=== PATIENT | male | born 1945 | race Caucasian/White ===

== ENCOUNTER → 2017-09-04 | Day surgery (SDC) | payer OTHER ==
[2017-08-28 11:13] VITALS: Ht 172.7 cm; Wt 127.3 kg
[~2017-09-04] VITALS: Ht 172.7 cm; Wt 127.3 kg
[~2017-09-04] MED LIST: ASPI-435 PO; DOCU100C31 PO; LIDOCAINE HCL 2% 2 ML VIAL (20MG/ML) ONE; MULTCHW; PROPOFOL IV EMULSION 10 MG/ML 20 ML VIAL ONE; VALS320T2 PO
--- NOTE | 2017-09-04 12:56 | Endo History and Physical ---
History & Physical Date of Service: September 04, 2017. Chief Complaint: history of polyps Referring Physician: Dr. Neal Smith History of Present Illness For colonoscopy Past Medical History Arthritis, Hypertension Past Surgical History Hx Cardiac Surgery: No Hx Internal Defibrillator: No Hx Pacemaker: No Hx Abdominal Surgery: Yes (OPEN APPY) Hx of Implantable Prosthesis: No Hx Post-Op Nausea and Vomiting: No Hx Cancer Surgery: No Hx Thoracic Surgery: No Hx Orthopedic: Yes (RT SHOULDER ARTHROSCOPY, LEFT CTR) Hx Urinary Tract Surgery: No Social History Smoking Status: Former Smoker Hx Substance Use: No Hx Alcohol Use: Yes (ONE BEER A YEAR) Allergies Coded Allergies: Codeine (Verified Adverse Reaction, Unknown, jittery, 08/28/17) Morphine (Verified Adverse Reaction, Unknown, jittery, 08/28/17) Current Medications Reported Home Medications Medications Dose Route/Sig Max Daily Dose Days Date Category Dose Instructions Docusate Sodium 100 Mg Cap 2 Cap PO BID 7 08/28/17 Reported Centrum Silver (Multiple Vitamins W/ Minerals) 1 Chw Chw 1 DAILY 08/24/15 Reported Aspirin 81 (Aspirin) 81 Mg Tab 1 Tab PO QAM 04/24/15 Reported Diovan Hct 320MG/25MG (HCTZ/Valsartan) 1 Tab Tab 1 Tab PO QAM 04/24/15 Reported 320-25MG Vital Signs Weight (Kilograms): 127.27 Height (Feet): 5 Height (Inches): 8 Date Time Temp Pulse Resp B/P (MAP) Pulse Ox O2 Delivery O2 Flow Rate FiO2 09/04/17 12:38 36.8 76 18 127/70 (89) 94 Room Air Physical Exam General Appearance: + obese Respiratory/Chest: Respiratory effort: no dyspnea Cardiovascular: Heart Auscultation: RRR Abdomen: Inspection & Palpation: soft Assessment and Plan Hx of polyps for colonoscopy
--- NOTE | 2017-09-04 13:39 | Discharge Instructions ---
Endoscopy Patient Instructions Date / Procedure(s) Performed September 04, 2017. Colonoscopy Allergy Information Coded Allergies: Codeine (Verified Adverse Reaction, Unknown, jittery, 08/28/17) Morphine (Verified Adverse Reaction, Unknown, jittery, 08/28/17) Discharge Date / Findings September 04, 2017. Diverticulosis, hemorrhoids, polyp Medication Instructions Stopped Medication(s): last dose ASA 3 days ago Restart Stopped Medication(s): resume meds Reported Home Medications Medications Dose Route/Sig Max Daily Dose Days Date Category Dose Instructions Docusate Sodium 100 Mg Cap 2 Cap PO BID 7 08/28/17 Reported Centrum Silver (Multiple Vitamins W/ Minerals) 1 Chw Chw 1 DAILY 08/24/15 Reported Aspirin 81 (Aspirin) 81 Mg Tab 1 Tab PO QAM 04/24/15 Reported Diovan Hct 320MG/25MG (HCTZ/Valsartan) 1 Tab Tab 1 Tab PO QAM 04/24/15 Reported 320-25MG Provider Instructions Activity Restrictions - No exercising or heavy lifting for 24 hours. - Do not drink alcohol the day of the procedure. - Do not drive a car or operate machinery until the day after the procedure. - Do not make any important decisions or sign important papers in 24 hours after the procedure. Following Day: - Return to full activity which may include returning to work/school. Diet Start your diet with liquids and light foods (jello, soup, juice, toast). Then eat your usual diet if not nauseated. Treatment For Common After Affects For mild abdominal pain, bloating, or excessive gas: - Rest - Eat lightly - Lie on right side Follow-Up Information Follow-up with Dr. Neal Smith as scheduled Anesthesia Information What You Should Know You have had a procedure that required some medicine to reduce anxiety and discomfort. This treatment is called moderate sedation. After receiving the treatment, you may be sleepy, but you will be able to breathe on your own. The effects of the treatment may last for several hours. Follow these instructions along with Activity/Diet recommendations noted above: * Do NOT do anything where dizziness or clumsiness would be dangerous. * Rest quietly at home today, then you can be up and about tomorrow. * Have a responsible person stay with you the rest of today. * You may have had an I.V. today. If so, you may take the dressing off later today. Recommendations Call your doctor if: * Trouble breathing * Continuous vomiting for more than 24 hours * Temperature above 101 degrees * Severe abdominal pain or bloating * Pain not relieved by pain medicine ordered * There is increased drainage or redness from any incision * A large amount of rectal bleeding greater than 2-3 tablespoons. (If you had a polyp/s removed or have hemorrhoids, a small amount of blood - from the rectum is to be expected.) * You have any unanswered questions or concerns. IN THE EVENT OF A SERIOUS EMERGENCY, GO TO THE NEAREST EMERGENCY ROOM Your discharge instructions were prepared by provider Cisco Lindo. Patient Instructions Signature Page Jaspal Craig Patient (or Guardian) Signature/Date: I have read and understand the instructions given to me by my caregivers. Caregiver/RN/Doctor Signature/Date: The above-named patient and/or guardian has received patient instructions on this date. + Original Patient Signature Page (only) stays with chart. Please make copy for patient.
--- NOTE | 2017-09-04 13:43 | GI REPORT ---
Patient Name: Jaspal Craig Procedure Date: 09/04/2017 12:42 PM Date of : 1945 Admit Type: Outpatient Age: 71 Gender: Male Attending MD: Cisco Lindo MD Procedure: Colonoscopy Providers: Cisco Lindo MD Referring MD: Neal Smith Indications: Personal history of colonic polyps Medicines: Propofol total dose 650 mg IV, Lidocaine 40 mg IV Complications: No immediate complications. Estimated Blood Loss: Estimated blood loss was minimal. Procedure: Pre-Anesthesia Assessment: - Prior to the procedure, a History and Physical was performed, and patient medications, allergies and sensitivities were reviewed. The patient's tolerance of previous anesthesia was reviewed. - The risks and benefits of the procedure and the sedation options and risks were discussed with the patient. All questions were answered and informed consent was obtained. After I obtained informed consent, the scope was passed under direct vision. Throughout the procedure, the patient's blood pressure, pulse, and oxygen saturations were monitored continuously. The scope was introduced through the anus and advanced to the cecum, identified by appendiceal orifice and ileocecal valve. The colonoscopy was somewhat difficult due to significant looping. Successful completion of the procedure was aided by applying abdominal pressure. The patient tolerated the procedure well. The quality of the bowel preparation was good. Findings: Multiple diverticula were found in the sigmoid colon. Non-bleeding internal hemorrhoids were found during endoscopy. The hemorrhoids were moderate. A 4 mm polyp was found in the sigmoid colon. The polyp was sessile. The polyp was removed with a cold snare. Resection and retrieval were complete. Estimated blood loss was minimal. Impression: - Diverticulosis in the sigmoid colon. - Non-bleeding internal hemorrhoids. - One 4 mm polyp in the sigmoid colon, removed with a cold snare. Resected and retrieved. Recommendation: - Discharge patient to home (ambulatory). - Continue present medications. - Await pathology results. - Return to primary care physician PRN. Cisco Lindo M.D. Cisco Lindo MD 09/04/2017 1:42:46 PM This report has been signed electronically. Note Initiated On: 09/04/2017 12:42 PM Number of Addenda: 0 I attest to the content of the Intraoperative Record and orders documented therein, exceptions below {[id number]}
--- NOTE | 2017-09-04 13:58 | Anesthesiology Progress Note ---
Anesthesia Post Op Note Date & Time September 04, 2017 at 13:57 Vital Signs Pain Intensity: 0 Vital Signs Past 12 Hours Date Time Temp Pulse Resp B/P (MAP) Pulse Ox O2 Delivery O2 Flow Rate FiO2 09/04/17 12:38 36.8 76 18 127/70 (89) 94 Room Air Notes Mental Status: alert / awake / arousable, participated in evaluation Pt Amnestic to Procedure: Yes Nausea / Vomiting: adequately controlled Pain: adequately controlled Airway Patency, RR, SpO2: stable & adequate BP & HR: stable & adequate Hydration State: stable & adequate Anesthetic Complications: no major complications apparent The patient is awake and his vitals are stable in recovery.
[2017-09-04 14:17] VITALS: BP 125/64; PULSE 68; O2SAT 96
== END | disposition home or self-care (01) ==
LOC: C.GI 12:15
PROVIDERS: ATTEND Internal Medicine Gastroenterology
DX: Z86.010 Personal history of colon polyps (principal); K57.30 Diverticulosis of large intestine without perforation or abscess without bleeding; K64.8 Other hemorrhoids; K63.5 Polyp of colon; E66.9 Obesity, unspecified; I10 Essential (primary) hypertension; M19.90 Unspecified osteoarthritis, unspecified site; Z87.891 Personal history of nicotine dependence; Z88.5 Allergy status to narcotic agent; Z79.82 Long term (current) use of aspirin

== ENCOUNTER 2021-06-06 16:55 | Inpatient (IN) ==
[2021-06-06 17:26] LABS: Basophils # (auto) 0.04 K/uL (0-0.2); Basophils % (auto) 0.5 %; Eosinophils # (auto) 0.19 K/uL (0-0.5); Eosinophils % (auto) 2.5 %; Hematocrit (blood only) 36.6 % (42-52); Hemoglobin 12.9 g/dL (14.0-18.0); Immature Granulocytes # (auto) 0.02 K/uL (0.00-0.02); Immature Granulocytes % (auto) 0.3 %; Lymphocytes # (auto) 1.06 K/uL (1.2-3.4); Lymphocytes % (auto) 13.9 %; Mean Corpuscular Hemoglobin 30.4 pg (25-34); Mean Corpuscular Hgb Conc 35.2 g/dL (32-36); Mean Corpuscular Volume 86.3 fL (80-100); Mean Platelet Volume 9.7 fL (7.4-10.4); Monocytes # (auto) 0.67 K/uL (0.11-0.59); Monocytes % (auto) 8.8 %; Neutrophils # (auto) 5.63 K/uL (1.4-6.5); Platelet Count 303 K/uL (130-400); RDW Coefficient of Variation 13.1 % (11.5-14.5); RDW Standard Deviation 41.4 fL (36.4-46.3); Red Blood Count 4.24 M/uL (4.7-6.1); White Blood Count 7.61 K/uL (4.8-10.8)
--- NOTE | 2021-06-06 17:57 | Emergency Department Note ---
History of Present Illness General Chief complaint: Abnormal Labs/Diagnostic Testing Stated complaint: REF BY DOC, KIDNEY SHUT DOWN Time Seen by Provider: 06/06/21 17:41 History of Present Illness 75-year-old male presents to the ED with a chief complaint of abnormal kidney function test. The patient states that he was seen by his PCP over a week ago and started on Lasix because of pedal edema. Over the past week he has had about 13 pounds of weight loss and has had some improvement with his pedal edema but reports that blood work yesterday from his PCPs office suggest that he has acute kidney injury with his creatinine going from 5.3-8.6. The patient states that he is urinating. He has no other complaints. Home Medications Medication Instructions Recorded Confirmed Type cyclosporine 0.05 % eye drops in a 1 drops OP Q12H 05/18/19 06/06/21 History dropperette (Restasis) valsartan 320 1 tab PO QAM 05/18/19 06/06/21 History mg-hydrochlorothiazide 25 mg tablet ascorbic acid (vitamin C) 500 mg 500 mg PO QAM 04/04/20 06/06/21 History chewable tablet (Vitamin C) furosemide 20 mg tablet (Lasix) 20 mg PO DAILY 06/01/21 06/06/21 History multivitamin 1 tab PO DAILY 06/01/21 06/06/21 History vitamin B complex 1 tab PO DAILY 06/06/21 06/06/21 History zinc 50 mg tablet 50 mg PO DAILY 06/06/21 06/06/21 History Allergies Allergy/AdvReac Type Severity Reaction Status Date / Time codeine AdvReac Intermediate jittery Verified 06/06/21 18:04 morphine AdvReac Intermediate jittery Verified 06/06/21 18:04 Past Med/Surg History Medical History Hearing deficit History of pneumonia roughly 5yrs ago--reason for inhaler prn Hypertension Morbid obesity with BMI of 40.0-44.9, adult Right knee DJD Right knee pain Surgical History History of appendectomy History of carpal tunnel release of both wrists History of colonoscopy with polypectomy History of left cataract surgery History of shoulder surgery right History of wisdom tooth extraction Family History Father Family history of diabetes mellitus Other Diabetes Heart disease Hypertension Kidney disease No family history of adverse response to anesthesia Social History Smoking Status: Current every day smoker Second Hand Exposure: No; Hx Alcohol Use: Yes Alcohol type: beer Hx Substance Use: No Preferred Language: Azeri Communication Ability: Effective Trauma Doctor Required: No Beliefs That Will Affect Care: None marital status: Current Living Situation: Spouse current occupational status: retired Feels Safe at Home: Yes Assistive Devices: Glasses and Hearing Aid - Bilateral Review of Systems A total of 10 systems reviewed and were otherwise negative Physical Exam Vital Signs Vital Signs - 24 hr 06/06/21 17:02 06/06/21 18:32 Temperature 36.9 C Temperature Source Temporal Artery Scan Pulse Rate 77 Respiratory Rate 18 14 Respiratory Effort / Characteristics Non-Labored Respiratory Depth Normal Blood Pressure 248/118 H Blood Pressure [Right Arm] 212/100 H Blood Pressure Mean 161 Blood Pressure Mean [Right Arm] 137 Pulse Oximetry 95 97 Oxygen Delivery Method Room Air Room Air Sepsis Recent Fever Within 48 Hours No Sepsis New/Unexplained Change in Mental Status N/A Sepsis Action Taken by Nursing No Action Required CONSTITUTIONAL/VITAL SIGNS: Reviewed / noted above. GENERAL: Non-toxic in appearance. INTEGUMENTARY: Warm, dry, and [place]. HEAD: Normocephalic. EYES: without scleral icterus or trauma. ENT/OROPHARYNX: clear and moist. LYMPHADENOPATHY/NECK: Is supple without lymphadenopathy or meningismus. RESPIRATORY: Clear to auscultation bilaterally. No increased work of breathing. CARDIOVASCULAR: Regular rate and rhythm. GI/ABDOMEN: Soft and nontender. No organomegaly or pulsatile mass. EXTREMITIES: Warm and well perfused. Pitting pedal edema. BACK: No CVA tenderness. NEUROLOGICAL: Intact without focal deficits. PSYCHIATRIC: normal affect. MUSCULOSKELETAL: Normally developed with good muscle tone. TRIAGE NURSING DOCUMENTATION REVIEWED. Course Administered Medications Discontinued Medications Sodium Chloride (Nss) 500 mls @ 999 mls/hr IV .Q31M ONE Stop: 06/06/21 18:36 Last Infusion: 06/06/21 19:01 Dose: 0 mls/hr Documented by: [id number] Admin: 06/06/21 18:28 Dose: 999 mls/hr Documented by: [id number] Medical Decision Making Differential Diagnosis Differential includes acute coronary syndrome, myocardial infarction, CVA, TIA, anemia, infection, pneumonia, UTI, pyelonephritis, poor nutrition, dehydration, electrolyte disturbance,hypoglycemia. Medical Records Attestation: I reviewed the patient's medical records. Home Medications Current Medication List: was personally reviewed by me Laboratory Data Attestation: I reviewed the patient's lab results. Result diagrams: 06/06/21 17:15 06/06/21 17:15 Lab Results 06/06/21 06/06/21 06/06/21 Range/Units 17:15 17:15 17: WBC 7.61 (4.8-10.8) K/uL RBC 4.24 L (4.7-6.1) M/uL Hgb 12.9 L (14.0-18.0) g/dL Hct 36.6 L (42-52) % MCV 86.3 (80-100) fL MCH 30.4 (25-34) pg MCHC 35.2 (32-36) g/dL RDW Std Deviation 41.4 (36.4-46.3) fL RDW Coeff of Sophie 13.1 (11.5-14.5) % Plt Count 303 (130-400) K/uL MPV 9.7 (7.4-10.4) fL Immature Gran % (Auto) 0.3 % Neut % (Auto) 74.0 % Lymph % (Auto) 13.9 % [place] % (Auto) 8.8 % Eos % (Auto) 2.5 % Baso % (Auto) 0.5 % Neut # (Auto) 5.63 (1.4-6.5) K/uL Lymph # (Auto) 1.06 L (1.2-3.4) K/uL [place] # (Auto) 0.67 H (0.11-0.59) K/uL Eos # (Auto) 0.19 (0-0.5) K/uL Baso # (Auto) 0.04 (0-0.2) K/uL Immature Gran # (Auto) 0.02 (0.00-0.02) K/uL Sodium 138 (136-145) mmol/L Potassium 3.2 L (3.5-5.1) mmol/L Chloride 104 (98-107) mmol/L Carbon Dioxide 23 (21-32) mmol/L Anion Gap 11 (3-11) BUN 71 H (6-23) mg/dl Creatinine 8.47 H* (0.6-1.4) mg/dl Est Cr Clr Drug Dosing 10.2 ml/min Est GFR ( Amer) 6.5 ml/min Est GFR (Non-Af Amer) 5.6 ml/min BUN/Creatinine Ratio 8.4 L (10-20) Glucose 96 (70-99(Fasting)) mg/dl Calcium 7.7 L (8.5-10.1) mg/dl Total Bilirubin 0.4 (0.2-1.0) mg/dl AST 11 L (13-39) U/L ALT 11 (7-52) U/L Alkaline Phosphatase 61 (34-104) U/L Troponin I 0.03 (0-0.04) ng/ml Total Protein 5.4 L (6.0-8.3) gm/dl Albumin 2.6 L (3.4-5.0) gm/dl Globulin 2.8 (2.5-4.0) gm/dl Albumin/Globulin Ratio 0.9 (0.9-2) SARS-CoV-2, RNA, NAAT (NEGATIVE) 06/06/21 Range/Units 18:20 WBC (4.8-10.8) K/uL RBC (4.7-6.1) M/uL Hgb (14.0-18.0) g/dL Hct (42-52) % MCV (80-100) fL MCH (25-34) pg MCHC (32-36) g/dL RDW Std Deviation (36.4-46.3) fL RDW Coeff of Sophie (11.5-14.5) % Plt Count (130-400) K/uL MPV (7.4-10.4) fL Immature Gran % (Auto) % Neut % (Auto) % Lymph % (Auto) % [place] % (Auto) % Eos % (Auto) % Baso % (Auto) % Neut # (Auto) (1.4-6.5) K/uL Lymph # (Auto) (1.2-3.4) K/uL [place] # (Auto) (0.11-0.59) K/uL Eos # (Auto) (0-0.5) K/uL Baso # (Auto) (0-0.2) K/uL Immature Gran # (Auto) (0.00-0.02) K/uL Sodium (136-145) mmol/L Potassium (3.5-5.1) mmol/L Chloride (98-107) mmol/L Carbon Dioxide (21-32) mmol/L Anion Gap (3-11) BUN (6-23) mg/dl Creatinine (0.6-1.4) mg/dl Est Cr Clr Drug Dosing ml/min Est GFR ( Amer) ml/min Est GFR (Non-Af Amer) ml/min BUN/Creatinine Ratio (10-20) Glucose (70-99(Fasting)) mg/dl Calcium (8.5-10.1) mg/dl Total Bilirubin (0.2-1.0) mg/dl AST (13-39) U/L ALT (7-52) U/L Alkaline Phosphatase (34-104) U/L Troponin I (0-0.04) ng/ml Total Protein (6.0-8.3) gm/dl Albumin (3.4-5.0) gm/dl Globulin (2.5-4.0) gm/dl Albumin/Globulin Ratio (0.9-2) SARS-CoV-2, RNA, NAAT NEGATIVE (NEGATIVE) Imaging Data My Impression: Chest x-ray: Per my interpretation there is no acute disease. No pneumothorax or pneumonia. ECG Data Attestation: I personally reviewed and interpreted this ECG as follows: Additional Comments: Twelve-lead EKG: Per my interpretation shows a normal sinus rhythm at a rate of 76. No ST elevation. Normal QTC. No PVCs. MDM Narrative Symptoms were mild presents with acute kidney injury in setting of recent diuresis and 13 pound weight loss. Blood pressure is elevated. Exam reveals pedal edema. Twelve-lead EKG shows a normal sinus rhythm. CBC is unremarkable. Chest x-ray not show acute disease. Chemistry panel shows a BUN of seventy-one and creatinine of 8.43. Albumin is 2.6. The patient will be seen by the [facility] pitalist for further inpatient evaluation and care. He was given 500 cc normal saline as I suspect some of his acute kidney dysfunction is related to dehydration. Impression & Plan Acute kidney injury superimposed on chronic kidney disease Discharge Plan Visit Data Chief Complaint: Abnormal Labs/Diagnostic Testing Stated Complaint: REF BY DOC, KIDNEY SHUT DOWN ED Provider: Camilo Swift Discharge Problem: Acute kidney injury superimposed on chronic kidney disease Patient Disposition: Admitted As Inpatient Forms Stand Alone Forms: [facility] Prescriptions Prescriptions: No Action valsartan-hydrochlorothiazide 320-25 mg tablet 1 tab PO QAM RF: 0 Restasis 0.05 % dropperette 1 drops OP Q12H RF: 0 furosemide [Lasix] 20 mg tablet 20 mg PO DAILY RF: 0 multivitamin Tablet 1 tab PO DAILY RF: 0 ascorbic acid (vitamin C) [Vitamin C] 500 mg Tablet,Chewable 500 mg PO QAM RF: 0 vitamin B complex Tablet 1 tab PO DAILY RF: 0 zinc 50 mg Tablet 50 mg PO DAILY RF: 0 Referrals Referrals: Neal Smith MD [Primary Care Provider] -
[2021-06-06 18:02] LABS: Albumin Globulin Ratio 0.9 (0.9-2); Albumin Level 2.6 gm/dl (3.4-5.0); BUN Creatinine Ratio 8.4 (10-20); Bilirubin,Total 0.4 mg/dl (0.2-1.0); Calcium 7.7 mg/dl (8.5-10.1); Creatinine Clr Calc Pharmacy 10.2 ml/min; Est GFR (African American) 6.5 ml/min; Est GFR (Non-African American) 5.6 ml/min; Globulin 2.8 gm/dl (2.5-4.0); Potassium 3.2 mmol/L (3.5-5.1); Total Protein 5.4 gm/dl (6.0-8.3)
[2021-06-06] MEDS ORDERED: SODIUM CHLORIDE 0.9% 500 ML IV ONE (18:06)
--- NOTE | 2021-06-06 18:42 | History & Physical Report ---
Date of Service June 06, 2021 Assessment & Plan (1) Acute renal failure: Plan: 75 yo M PMHx HTN admitted for acute renal failure. Acute renal failure: Presents from outpatient office with creatinine 8.47. One week prior creatinine of 5.3. Baseline creatinine 1.3 in 2019 (last known value prior per [facility] EMR). Recently started on Lasix 20mg PO daily due to suspicion of cardiorenal syndrome causing LARISA to 5.3. At this time most suspicious of ATN secondary to combined nephrotoxic medications (valsartan, HCTZ, Aleve, Lasix). Urine and serum lytes ordered. Renal ultrasound ordered. Holding Lasix, ARB, HCTZ. NSS at 125cc/hr x1 bag ordered. Strict intake and output. Repeat BMP in AM. K 3.2. EKG without peaked T waves. No indication for emergent dialysis. Telemetry for cardiac monitoring. Nephrology consulted and appreciate recommendations. HTN: History of, on valsartan/HCTZ. Holding in the setting of ARF. Metoprolol 10mg IV q6h scheduled with holding parameters. Pitting edema: On presentation with putting edema to bilateral hands, bilateral LE to mid-carlson. In the setting of albumin 2.6; suspect edema is due to third spacing rather than cardiac cause. Echocardiogram ordered for baseline and to determine EF given patient is receiving fluids and has edema. Does not appear fluid overloaded on CXR per my review; also reviewed with Dr. Reyes. Code Status: FULL CODE FEN: Low sodium diet DVT ppx: Heparin 5000u SQ BID Dispo: Telemetry History of Present Illness Chief Complaint: acute renal failure Primary Care Provider: Neal Smith MD 75 yo M Hx HTN presented to the ER following worsening abnormal creatinine in the outpatient setting. Pertinent history as follows: Patient was seen on 05/30 by PCP office for a 2- week history of upper and lower extremity pitting edema and dyspnea on exertion after a radical change in diet at home with more salty and processed foods (per patient had partial colectomy and could only eat easily digested things and they were reaching for higher salt items). Noted to have a weight gain of 28 pounds in about a month with a decrease in urine output. BMP resulted the following day showing a creatinine of 5.32 (last known baseline 1.3 in 2019). Patient was advised to have urgent evaluation but was concerned due to the pandemic and instead urgent follow-ups were scheduled with Cardiology and Nephrology for June (no earlier appointments available). Patient was ordered Lasix 20 mg p.o. daily for suspicion of CHF/cardiorenal syndrome causing symptoms and lab abnormalities. Patient was seen on 06/05 in PCP office with significant improvement in his dyspnea and swelling following initiation of diuretics. Repeat BMP however unfortunately showed a creatinine of 8.47 and patient was urged to report to the ER for evaluation after discussion with [facility] Nephrology. On my interview patient reports no chest pain, SOB, abdominal pain, nausea, vomiting, diarrhea. He has taken Aleve 1 tablet about 5 times in the last 7 days for back aches/head pressure. In the ER patient noted to have BP 200s/100s systolic with regular sized cuff, improved to 180s/90s. Allergies Allergy/AdvReac Type Severity Reaction Status Date / Time codeine AdvReac Intermediate jittery Verified 06/06/21 18:04 morphine AdvReac Intermediate jittery Verified 06/06/21 18:04 Home Medications Medication Instructions Recorded Confirmed Type cyclosporine 0.05 % eye drops in a 1 drops OP Q12H 05/18/19 06/06/21 History dropperette (Restasis) valsartan 320 1 tab PO QAM 05/18/19 06/06/21 History mg-hydrochlorothiazide 25 mg tablet ascorbic acid (vitamin C) 500 mg 500 mg PO QAM 04/04/20 06/06/21 History chewable tablet (Vitamin C) furosemide 20 mg tablet (Lasix) 20 mg PO DAILY 06/01/21 06/06/21 History multivitamin 1 tab PO DAILY 06/01/21 06/06/21 History vitamin B complex 1 tab PO DAILY 06/06/21 06/06/21 History zinc 50 mg tablet 50 mg PO DAILY 06/06/21 06/06/21 History Past Med/Surg History Medical History (Updated 06/07/21 @ 13:15 by Keon Prater MD) Hearing deficit History of pneumonia roughly 5yrs ago--reason for inhaler prn Hypertension Hypertensive urgency Morbid obesity with BMI of 40.0-44.9, adult Nephrotic syndrome Right knee DJD Right knee pain Surgical History History of appendectomy History of carpal tunnel release of both wrists History of colonoscopy with polypectomy History of left cataract surgery History of shoulder surgery right History of wisdom tooth extraction Family History Father Family history of diabetes mellitus Other Diabetes Heart disease Hypertension Kidney disease No family history of adverse response to anesthesia Social History Smoking Status: Never smoker Second Hand Exposure: No; Do You Dip or Chew Tobacco: No; Hx Alcohol Use: No Hx Substance Use: No Preferred Language: Thai Communication Ability: Effective Cisco Certified Internetwork Expert Required: No Beliefs That Will Affect Care: None marital status: Current Living Situation: Spouse current occupational status: retired Other Information That Helps Us Care for You: No Feels Safe at Home: Yes Safety Concerns: Feels Safe At This Time Assistive Devices: None Review of Systems Review of Systems: All systems reviewed & are unremarkable except as noted in HPI & below Constitutional: no fever, no chills and no malaise Respiratory: no cough and no dyspnea Cardiovascular: no chest pain, no palpitations and no edema Gastrointestinal: no abdominal pain, no constipation and no diarrhea/loose stools Physical Exam Constitutional: WD/WN, vitals as above Eyes: PERRL, conjunctivae normal, anicteric sclerae ENMT: external ear and nose normal, oropharynx normal Neck: normal visual inspection Respiratory: normal respiratory effort, lungs clear to auscultation Cardiovascular: regular rate and rhythm, no murmurs. pitting edema to bilateral LE to the level of the mid-carlson pitting edema to bilateral hands, does not pass the wrist Gastrointestinal (Abdomen): normal bowel sounds, soft, nontender, no hepatosplenomegaly Musculoskeletal: no cyanosis or clubbing, extremities motor strength 5/5 Skin: no rashes, warm and dry Neurologic: AAOx3, normal speech. Bilateral UE, LE, and face without sensory or motor deficits. No tremor. Psychiatric: A+Ox3, euthymic affect Results & Data Results & Data ([facility]) Vital Signs (Past 12 Hours) Vital Signs Temp Pulse Resp BP BP Pulse Ox 06/06/21 18:32 14 212/100 H 97 06/06/21 17:02 36.9 C 77 18 248/118 H 95 Supervising Physician Co-Signing Physician Notes Attending addendum: I have physically seen this patient, have supervised the medical residents activities, and agree with the H&P unless as otherwise noted. Assessment and Plan: Acute renal failure- Creatinine 8.47 upon admission With creatinine 5.3 last week, and baseline creatinine in 2019 being 1.3 Hold Lasix, hydrochlorothiazide and valsartan Avoid all nephrotoxic agents NSS@125 mils per hour Renal ultrasound Follow serial BMP, and magnesium levels nephrology aware and will be consulted Hypertension/lower extremity edema The patient will be admitted to telemetry for serial cardiac enzymes, serial EKG's, cardiac rhythm monitoring and a 2-D echocardiogram with Dopplers. Holding medications as noted above Metoprolol 5 mg IV every 4 hours as needed systolic blood pressure greater than 160 Low-sodium diet remaining orders and notations as noted Remaining orders and notations as noted Resident Activity Tracking Resident Involvement: Resident Care Provided Care Provided: Adult Hospital Medicine
--- NOTE | 2021-06-06 19:02 | XRay Report ---
XR chest 1V portable HISTORY: 75 years-old Male edema acute shortness of breath COMPARISON: Chest CT 11/17/2013, chest radiograph 05/21/2013 TECHNIQUE: Portable AP view the chest FINDINGS: Cardiac silhouette is enlarged. Pulmonary vascular congestion with mild interstitial coarsening. No p neumothorax. Trace pleural effusions. Mild bibasilar densities suggestive of atelectasis. Degenerativ e changes of the shoulders and spine. IMPRESSION: 1. Cardiomegaly with pulmonary vascular congestion and interstitial coarsening suggestive of pulmonar y edema. 2. Trace pleural effusions. ACT 112: Negative or not required by law. The above report was generated using voice recognition software. It may contain grammatical, syntax o r spelling errors. Electronically signed by: Keven Vincent M.D. 06/06/2021 7:01 PM
[2021-06-06] MEDS ORDERED: hydrALAZINE HCL 20 MG/ML VIAL IV PRN (19:28)
[2021-06-06 20:21] LABS: Appearance Urine Clear (Clear); Bacteria Urine Automated Negative (Negative); Bilirubin Urine Negative (Negative); Blood Urine 3+ (Negative); Color Urine Yellow; Epithelial Cell Urine Auto >30 /lpf (0-5); Glucose Urine UA 1+ (Negative); Ketones Urine Trace (Negative); Leukocyte Esterase Urine Negative (Negative); Nitrite Urine Negative (Negative); Protein Urine 4+ (Negative); Specific Gravity Urine 1.027 (1.000-1.030); Urobilinogen Urine Negative (Negative); pH Urine 6.5 (4.5-7.5)
[2021-06-06 20:39] LABS: Creatinine Urine Random 128.5 mg/dl; Potassium Random Urine 45.4 mmol/L
[2021-06-06] MEDS ORDERED: ACETAMINOPHEN 325 MG TAB PO PRN (21:21)
[2021-06-06] MEDS ORDERED: SODIUM CHLORIDE 0.9% 1000ML 1,000 ML IV SCH (22:45)
[2021-06-06] MEDS: HEPARIN SOD 5,000 UNIT/0.5 ML VIAL SQ SCH (23:50)
[2021-06-06] MEDS: METOPROLOL TARTRATE 1 MG/ML VIAL IV SCH (23:50)
[2021-06-07 05:31] LABS: BUN Creatinine Ratio 8.5 (10-20); Calcium 7.1 mg/dl (8.5-10.1); Creatinine Clr Calc Pharmacy 10.3 ml/min; Est GFR (African American) 6.4 ml/min; Est GFR (Non-African American) 5.5 ml/min; Potassium 3.4 mmol/L (3.5-5.1)
[2021-06-07] MEDS: METOPROLOL TARTRATE 1 MG/ML VIAL IV SCH ×5 (05:53→23:18)
--- NOTE | 2021-06-07 07:41 | Ultrasound Report ---
ULTRASOUND KIDNEYS AND BLADDER CLINICAL HISTORY: Acute renal failure. COMPARISON STUDY: Abdominal CT dated 11/17/2013 TECHNIQUE: Real-time, grayscale, and color flow sonography of the kidneys and bladder is performed. I mages are reviewed in the transverse and longitudinal planes. FINDINGS: Kidneys: The kidneys are normal in size and echotexture. The right kidney measures 11.8 cm and the left kidney measures 14.0 cm in length. There is no hydronephrosis. No shadowing renal calcul i are identified. An 8.7 cm cyst arises from the right upper pole. There is no sonographic evidence o f contour deforming renal mass lesion. No perinephric fluid is identified. Bladder: The prostate gland is enlarged noting median lobe hypertrophy. The bladder wall appears thic kened and irregular suggesting chronic outlet obstruction. Only the right ureteral jet was seen. IMPRESSION: 1. The kidneys are normal in size and without hydronephrosis. 2. The bladder wall appears thickened and trabeculated suggesting chronic outlet obstruction. ACT 112: Negative or not required by law. Electronically signed by: Landen Garcia M.D. 06/07/2021 7:40 AM
[2021-06-07] MEDS: HEPARIN SOD 5,000 UNIT/0.5 ML VIAL SQ SCH ×2 (11:38→21:00)
[2021-06-07] MEDS: amLODIPine BESYLATE 5 MG TAB PO SCH (11:38)
[2021-06-07] MEDS: FUROSEMIDE 40 MG TAB PO SCH ×2 (11:38→17:25)
--- NOTE | 2021-06-07 11:39 | Nephrology Consultation ---
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 Urinalysis also has hematuria and blood pressure has been elevated, seems like patient has both nephrotic and nephritic picture. Differentials include glomerular pathology including membranous nephropathy, minimal change disease, FSGS, ANCA renal vasculitis, anti-GBM and others. Possibility for paraproteinemia remains as well. --order serological workup and paraproteinemia workup. Wait for 24 hour urine for proteinuria --monitor intake and output --start on Lasix 40 mg p.o. 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 Will follow Thank you for allowing me to participate in your patient's care. It was a p lara to see Jaspal. History of Present Illness Reason for Consultation: Acute kidney injury and nephrotic syndrome Attending Physician: Keon Prater MD History of Present Illness Mr. Craig is a 75-year-old gentlemen with past medical history significant for hypertension, mild CKD admitted to the hospital with acute kidney injury and nephrotic syndrome. Nephrology consult was requested to manage acute kidney injury and nephrotic syndrome. EMR records are reviewed in detail during patient's visit. Jaspal was referred to ER by his PCP as outpt lab showed LARISA. He started to notice progressive lower extremity edema and generalized edema almost 6-8 weeks ago which progressively worsened and he gained almost 30 lb over 6 weeks. He was seen by his PCP a week ago and started on Lasix 20 mg daily and had routine lab done during the visit. Lab showed creatinine of 5.1 with prior b/l from 2019 cr was 1.3. He reports some improvement in lower extremity edema with Lasix and lost almost 12 lb over 1 week. Routine lab done yesterday showed rapid progressive worsening of renal function, creatinine was 8.6, albumin 2.6. Urinalysis showed 4+ proteinuria and 3+ hematuria, pyuria but no bacteriuria. Denied any gross hematuria. Renal ultrasound with no hydronephrosis, kidneys with normal echogenicity, right kidney was 11.8 cm and left kidney 14 cm. He took for total 4-5 Aleve over last 1 week but no prior history of heavy NSAID use. BP initially was >240/120, which started to improve. In ER initially he received 1L of IV fluid which no discontinue. He was also on valsartan and hydrochlorothiazide at home for history of hypertension. He reports some change in diet over last few weeks, has been having high salt diet mainly canned food and soup. Denied any arthralgia, skin rash, hemoptysis, sinus congestion. Urine output has been decent. Denied any unusual fatigue, tiredness, loss of appetite. Non smoker, denies alcohol, retired. Both Mom and Dad had CKD , unknown etiology. Hypertension for more than 10 years, used to be pretty well controlled on valsartan/hydrochlorothiazide. no history of diabetes, coronary artery disease or CHF. Overall he feels well, no shortness of breath, chest pain. Has been voiding normally. Allergies Allergy/AdvReac Type Severity Reaction Status Date / Time codeine AdvReac Intermediate jittery Verified 06/06/21 18:04 morphine AdvReac Intermediate jittery Verified 06/06/21 18:04 Home Medications Medication Instructions Recorded Confirmed Type cyclosporine 0.05 % eye drops in a 1 drops OP Q12H 05/18/19 06/06/21 History dropperette (Restasis) valsartan 320 1 tab PO QAM 05/18/19 06/06/21 History mg-hydrochlorothiazide 25 mg tablet ascorbic acid (vitamin C) 500 mg 500 mg PO QAM 04/04/20 06/06/21 History chewable tablet (Vitamin C) furosemide 20 mg tablet (Lasix) 20 mg PO DAILY 06/01/21 06/06/21 History multivitamin 1 tab PO DAILY 06/01/21 06/06/21 History vitamin B complex 1 tab PO DAILY 06/06/21 06/06/21 History zinc 50 mg tablet 50 mg PO DAILY 06/06/21 06/06/21 History Patient History Medical History (Updated 06/07/21 @ 12:03 by Yen Watson MD) Hearing deficit History of pneumonia roughly 5yrs ago--reason for inhaler prn Hypertension Hypertensive urgency Morbid obesity with BMI of 40.0-44.9, adult Nephrotic syndrome Right knee DJD Right knee pain Surgical History History of appendectomy History of carpal tunnel release of both wrists History of colonoscopy with polypectomy History of left cataract surgery History of shoulder surgery right History of wisdom tooth extraction Family History Father Family history of diabetes mellitus Other Diabetes Heart disease Hypertension Kidney disease No family history of adverse response to anesthesia Social History Smoking Status: Never smoker Second Hand Exposure: No; Do You Dip or Chew Tobacco: No; Hx Alcohol Use: No Hx Substance Use: No Preferred Language: Jamaican Communication Ability: Effective Filter Changer Required: No Beliefs That Will Affect Care: None marital status: Current Living Situation: Spouse current occupational status: retired Other Information That Helps Us Care for You: No Feels Safe at Home: Yes Safety Concerns: Feels Safe At This Time Assistive Devices: None Review of Systems Review of Systems: Detail ROS was otherwise unremarkable. Physical Exam Constitutional: WD/WN, vitals as above + obese and + edematous; no acute distress Eyes: + anicteric sclerae ENMT: Ears: no hearing impairment Neck: normal visual inspection Thyroid: no thyromegaly Respiratory: normal respiratory effort; no respiratory distress and no cough Auscultation: lungs clear to auscultation bilaterally Cardiovascular: Rate/Rhythm: regular rate and regular rhythm Heart Sounds: normal S1 and normal S2 Extremities: + edema (2 to 3 + b/l LE edema, UE edema) Gastrointestinal (Abdomen): Inspection/Auscultation: abdomen normal to inspection, normal bowel sounds and + abdominal edema Percussion/Palpation: abdomen soft; abdomen nontender Musculoskeletal: Extremities: extremities normal to inspection Skin: no rashes Neurologic: no focal motor deficits and not confused Psychiatric: Orientation: alert and oriented x 3 Affect: euthymic affect Results & Data ([facility]) Vital Signs (Past 12 Hours) Vital Signs Pulse Pulse Resp BP Pulse Ox 06/07/21 05:53 67 163/83 H 06/07/21 01:29 61 12 97 06/06/21 23:50 68 172/109 H PG Care Time/CCT Total # of Minutes Spent Total Time Spent with Patient: Total time spent is greater than 50% in coordination of care (as documented) at patient's floor/unit and/or counseling patient: Coding Level of Care Code 05407 Initial Inpt Care Lvl 3 Diagnoses Nephrotic syndrome N04.9 Hypertensive urgency I16.0 Acute renal failure N17.9
[2021-06-07 12:03] LABS: Appearance Urine Clear (Clear); Bacteria Urine Automated Negative (Negative); Bilirubin Urine Negative (Negative); Blood Urine 2+ (Negative); Color Urine Yellow; Epithelial Cell Urine Auto >30 /lpf (0-5); Glucose Urine UA 2+ (Negative); Ketones Urine Trace (Negative); Leukocyte Esterase Urine Negative (Negative); Nitrite Urine Negative (Negative); Protein Urine 4+ (Negative); RBC Urine Automated >30 /hpf (0-4); Specific Gravity Urine 1.025 (1.000-1.030); Urobilinogen Urine Negative (Negative); pH Urine 6.5 (4.5-7.5)
[2021-06-07 12:18] LABS: Renal Epithelial Cells Urine 0-5 /lpf (0-5)
[2021-06-07 12:54] LABS: Creatinine Urine Random 134.2 mg/dl; Total Protein Urine Random > 1000.0 mg/dl (0-11.9)
--- NOTE | 2021-06-07 12:54 | Hospitalist Progress Note ---
Date of Service June 07, 2021 Assessment & Plan (1) Acute renal failure: Plan: Jaspal is a 75-year-old male with past medical history of hypertension and sleep apnea who presented with upper and lower extremity pitting edema, dyspnea on exertion, and an outpatient creatinine recheck of 5.32 from 1.3. Patient had had a 28 pound weight gain in the previous month with concern for cardiorenal syndrome, was recommended for hospital evaluation but deferred to urgent cardiology/nephrology follow-up appointments in June. At 06/05 in PCP office he had had improvement in dyspnea and swelling, but repeat BMP showed a creatinine increased to 8.47 and patient was instructed to present to the emergency department for additional evaluation. Acute renal failure Outpatient creatinine 8.47, increased over 7 days from 5.3, baseline 2019 1.3 Patient had been started on 20 mg Lasix p.o. daily due to suspicion of cardiorenal syndrome as outpatient with 28 pound weight gain over 1 month. - TTE pending, if any EKG normal sinus rhythm without territorial ST changes Edematous without signs of pulmonary edema on clinical exam Nephrology consulted. Patient continues to have proteinuria. Pending 24-hour urine collection. Nephritis/nephrosis serologies, MGUS/MM, hepatitis panel pending. Steroids pending results. If inconclusive, may require follow-up renal biopsy. Fluid status and electrolytes acceptable. Sodium 139, potassium 3.4, phosphorus pending. No indication for urgent dialysis today plan Hypoalbuminemic to 2.6 continue Lasix 40 mg p.o. twice daily, continue to hold ARB/HCTZ BMP daily (2) Nephrotic syndrome: Plan: As above (3) Hypertension: Plan: Hold valsartan/HCTZ as above Continue Lasix Amlodipine 10 mg daily Resolved heart rate 5 mg IV every 6 hours to hold for the cardia Hydralazine 10 mg IV every 6 hours as needed for systolic greater than 180 (4) Hypertensive urgency: Plan: As above (5) Sleep apnea: Plan: CPAP nightly as needed Plan: DVT prophylaxis: Heparin subcu Diet: Renal diet, low sodium CODE STATUS: Full code Admission and Anticipated Discharge Date Admission Date: June 06, 2021 Subjective Patient seen at the bedside. He reports he has had increased swelling in his hands and feet today, felt he was "pretty good "and his hands were "pretty dry, with wrinkles " yesterday. He is not having any chest pain or shortness of breath. He is not have trouble breathing when laying back. Has been peeing normally without dysuria or feeling of retention. Had substantial weight gain over a month ago, was started on Lasix and did improve, but has had increases in his creatinine as outpatient progressively worsened and prompted him to represent. Denies headache, vision change, lightheadedness, dizziness, nausea, vomiting Review of Systems Review of Systems: All systems reviewed & are unremarkable except as noted in Subjective Physical Exam Physical Exam: General: A&Ox3. NAD. Cooperative. BMI 45. HEENT: Atraumatic, normocephalic. Pulm: CTAB A&P. -wheezes, -rales, -rhonchi. Symmetrical chest rise. No increase in work of breathing. No respiratory distress. Cardiac: RRR, -mrg. Radial pulses intact and symmetrical. Abdominal: Nontender, nondistended, soft. BS present. Extremities: Pitting edema of the hands lower extremities bilaterally. Power Washer strength, hip flexion, ankle dorsiflexion/plantar flexion intact and symmetrical. Sensation to soft touch intact bilaterally Results & Data Results & Data ([facility]) Vital Signs (Past 12 Hours) Vital Signs Pulse Pulse Resp BP Pulse Ox 06/07/21 05:53 67 163/83 H 06/07/21 01:29 61 12 97 PG Care Time/CCT Total # of Minutes Spent Total Time Spent with Patient: Total time spent is greater than 50% in coordination of care (as documented) at patient's floor/unit and/or counseling patient: Coding Level of Care Code 25215 Subseq Hosp Care Lvl 2 Diagnoses Acute renal failure N17.9 Nephrotic syndrome N04.9 Hypertension I10 Hypertensive urgency I16.0 Sleep apnea G47.30
[2021-06-07 15:29] LABS: Lyme Ab IgG w/WB Rflx Negative (Negative)
[2021-06-07 15:30] LABS: Lyme Ab IgM w/WB Rflx Negative (Negative)
[2021-06-07] MEDS ORDERED: FUROSEMIDE 40 MG/4 ML VIAL IV SCH (17:25)
[2021-06-07] MEDS ORDERED: FUROSEMIDE 40 MG/4 ML VIAL IV ONE (17:26)
--- NOTE | 2021-06-07 17:28 | XCELERA ---
[id number]
--- NOTE | 2021-06-07 22:11 | Billing Data ---
Date of Service June 07, 2021 Coding Level of Care Code 01259 Initial Inpt Care Lvl 3
--- NOTE | 2021-06-07 22:20 | Electrocardiogram Report ---
Test Reason : Blood Pressure : / mmHG Vent. Rate : 076 BPM Atrial Rate : 076 BPM P-R Int : 168 ms QRS Dur : 114 ms QT Int : 414 ms P-R-T Axes : 074 017 032 degrees QTc Int : 465 ms Normal sinus rhythm Low voltage QRS Cannot rule out Anterior infarct , age undetermined Abnormal ECG When compared with ECG of 21-APR-2015 09:43, Minimal criteria for Anterior infarct are now Present T wave inversion now evident in Anterior leads Confirmed by Vidal Bolivar ([id number]) on 06/07/2021 10:20:24 PM Referred By: Neal Smith Confirmed By:Vidal Bolivar
[2021-06-08 05:48] LABS: Basophils # (auto) 0.03 K/uL (0-0.2); Basophils % (auto) 0.5 %; Eosinophils # (auto) 0.16 K/uL (0-0.5); Eosinophils % (auto) 2.6 %; Hematocrit (blood only) 34.4 % (42-52); Hemoglobin 12.1 g/dL (14.0-18.0); Immature Granulocytes # (auto) 0.01 K/uL (0.00-0.02); Immature Granulocytes % (auto) 0.2 %; Lymphocytes # (auto) 1.04 K/uL (1.2-3.4); Lymphocytes % (auto) 16.8 %; Mean Corpuscular Hgb Conc 35.2 g/dL (32-36); Mean Corpuscular Volume 85.4 fL (80-100); Mean Platelet Volume 9.6 fL (7.4-10.4); Monocytes # (auto) 0.48 K/uL (0.11-0.59); Monocytes % (auto) 7.8 %; Neutrophils # (auto) 4.46 K/uL (1.4-6.5); Neutrophils % (auto) 72.1 %; Platelet Count 275 K/uL (130-400); RDW Coefficient of Variation 13.2 % (11.5-14.5); Red Blood Count 4.03 M/uL (4.7-6.1); White Blood Count 6.18 K/uL (4.8-10.8)
[2021-06-08] MEDS: METOPROLOL TARTRATE 1 MG/ML VIAL IV SCH ×4 (06:13→23:38)
[2021-06-08 06:38] LABS: Albumin Level 2.2 gm/dl (3.4-5.0); BUN Creatinine Ratio 8.7 (10-20); Calcium 7.4 mg/dl (8.5-10.1); Creatinine Clr Calc Pharmacy 10.2 ml/min; Est GFR (African American) 6.4 ml/min; Est GFR (Non-African American) 5.5 ml/min; Phosphorus 9.6 mg/dl (2.5-4.9); Potassium 3.2 mmol/L (3.5-5.1)
--- NOTE | 2021-06-08 06:57 | Electrocardiogram Report ---
Test Reason : Blood Pressure : / mmHG Vent. Rate : 067 BPM Atrial Rate : 067 BPM P-R Int : 190 ms QRS Dur : 096 ms QT Int : 442 ms P-R-T Axes : 059 009 027 degrees QTc Int : 467 ms Normal sinus rhythm Possible Left atrial enlargement Cannot rule out Anterior infarct (cited on or before 06-JUN-2021) T wave abnormality, consider anterior ischemia Abnormal ECG When compared with ECG of 06-JUN-2021 17:10, No significant change was found Confirmed by Vidal Bolivar ([id number]) on 06/08/2021 6:57:12 AM Referred By: Neal Smith Confirmed By:Vidal Bolivar
[2021-06-08 08:22] LABS: Hepatitis B Surf Ag Rflx Conf Neg (Neg)
[2021-06-08] MEDS ORDERED: POTASSIUM CHLORIDE CRTAB 20 MEQ TABCR PO STA (08:42)
[2021-06-08 08:51] LABS: Hepatitis C IgG 13Yrs+Old_Rflx Neg (Neg)
[2021-06-08] MEDS: FUROSEMIDE 40 MG/4 ML VIAL IV SCH ×2 (09:09→18:00)
[2021-06-08] MEDS: amLODIPine BESYLATE 5 MG TAB PO SCH (09:09)
[2021-06-08] MEDS: HEPARIN SOD 5,000 UNIT/0.5 ML VIAL SQ SCH ×2 (09:10→21:25)
[2021-06-08] MEDS: LABETALOL HCL 200 MG TAB PO SCH ×2 (10:25→21:25)
[2021-06-08] MEDS: methylPREDNISolone 500 MG in DEXTROSE 5% 250 ML IV SCH (11:19)
[2021-06-08] MEDS: SEVELAMER HCL 800 MG TABLET PO SCH ×2 (11:24→19:09)
--- NOTE | 2021-06-08 11:29 | Nephrology Progress Note ---
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 Urinalysis also has hematuria and blood pressure has been elevated, seems like patient has both nephrotic and nephritic picture. Differentials include glomerular pathology including membranous nephropathy, minimal change disease, FSGS, ANCA renal vasculitis, anti-GBM and others. Possibility for paraproteinemia remains as well. Renal function staying relatively stable, no critical electrolyte abnormality although urine output remains low despite getting high dose of IV Lasix. serological workup and paraproteinemia workup ordered but currently pending. Wait for 24 hour urine for proteinuria. blood pressure remained elevated. --start on IV methylprednisolone 5 and mg daily x3 days and then continue p.o. prednisone while waiting for serological workup. Considering high likelihood of glomerular pathology, benefit of high-dose steroid outweigh the potential risks. --monitor intake and output --increase Lasix to 120 mg IV bid, continue to hold valsartan/HCTZ -- start on Renvela 1 tab t.i.d. with meal. --may need to consider dialysis if no improvement in urine output, develop respiratory distress or critical electrolyte abnormality however, no indication for [employer] at this time. -- if serological and paraproteinemia workup unremarkable, no improvement in renal function, for definitive diagnosis, biopsy can be scheduled as an outpatient once patient stabilized and discharged in next 1 to 2 weeks Will follow Admission and Anticipated Discharge Date Admission Date: June 06, 2021 Drea Shay was seen in his room this morning. He is still in ER. Blood pressure remained elevated. No significant change in renal function, creatinine staying around 8.5. Potassium was low at 3.2. Urine output low but no respiratory distress. Both upper and lower extremity remained significantly edematous however he feels there is some improvement in abdominal edema. Review of Systems Review of Systems: Detail ROS was otherwise unremarkable. Physical Exam Constitutional: WD/WN, vitals as above + obese and + edematous; no acute distress Eyes: + anicteric sclerae ENMT: Ears: no hearing impairment Neck: normal visual inspection Thyroid: no thyromegaly Respiratory: normal respiratory effort; no respiratory distress and no cough Auscultation: lungs clear to auscultation bilaterally Cardiovascular: Rate/Rhythm: regular rate and regular rhythm Heart Sounds: normal S1 and normal S2 Extremities: + edema (2 to 3 + b/l LE edema, UE edema) Gastrointestinal (Abdomen): Inspection/Auscultation: + abdominal edema Percussion/Palpation: abdomen soft; abdomen nontender Skin: no rashes Neurologic: no focal motor deficits and not confused Psychiatric: Orientation: alert and oriented x 3 Affect: euthymic affect Results & Data ([facility]) Vital Signs (Past 12 Hours) Vital Signs Pulse Pulse Resp BP BP Pulse Ox 06/08/21 06:10 70 16 175/85 H 93 06/08/21 05:43 76 12 156/76 H 91 06/08/21 02:01 73 12 143/77 H 93 06/08/21 01:31 76 12 163/82 H 93 06/08/21 01:01 72 11 L 171/79 H 93 06/08/21 00:31 75 12 169/82 H 92 06/08/21 00:01 69 12 162/83 H 92 06/07/21 23:51 70 15 168/79 H 92 06/07/21 23:50 71 12 92 06/07/21 23:40 72 15 92 06/07/21 23:30 74 12 92 06/07/21 23:20 76 12 92 PG Care Time/CCT Total # of Minutes Spent Total Time Spent with Patient: Total time spent is greater than 50% in coordination of care (as documented) at patient's floor/unit and/or counseling patient: Coding Level of Care Code 60832 Subseq Hosp Care Lvl 3 Diagnoses Nephrotic syndrome N04.9 Hypertensive urgency I16.0 Acute renal failure N17.9
[2021-06-08 12:25] LABS: Urine Total Protein > 1000.0 mg/dl
[2021-06-08 12:36] LABS: Total Volume Urine 1000 mL
[2021-06-08 14:01] LABS: Total Protein 24 Hour Urine > 10000.0 mg/24 Hr (0-149.1)
--- NOTE | 2021-06-08 14:02 | Electrocardiogram Report ---
Test Reason : Blood Pressure : / mmHG Vent. Rate : 071 BPM Atrial Rate : 071 BPM P-R Int : 184 ms QRS Dur : 110 ms QT Int : 428 ms P-R-T Axes : 070 043 031 degrees QTc Int : 465 ms Normal sinus rhythm Low voltage QRS Possible Inferior infarct , age undetermined Cannot rule out Anterior infarct (cited on or before 06-JUN-2021) Abnormal ECG When compared with ECG of 07-JUN-2021 13:08, (unconfirmed) No significant change was found Confirmed by Neal Sepulveda ([id number]) on 06/08/2021 2:02:34 PM Referred By: Neal Smith Confirmed By:Neal Sepulveda
--- NOTE | 2021-06-08 14:06 | Electrocardiogram Report ---
Test Reason : Blood Pressure : / mmHG Vent. Rate : 079 BPM Atrial Rate : 079 BPM P-R Int : 178 ms QRS Dur : 112 ms QT Int : 392 ms P-R-T Axes : 021 019 010 degrees QTc Int : 449 ms Poor data quality, interpretation may be adversely affected Normal sinus rhythm Low voltage QRS Incomplete right bundle branch block Inferior infarct (cited on or before 07-JUN-2021) Cannot rule out Anterior infarct (cited on or before 06-JUN-2021) Abnormal ECG When compared with ECG of 07-JUN-2021 19:14, (unconfirmed) Nonspecific T wave abnormality, worse in Lateral leads Confirmed by Neal Sepulveda ([id number]) on 06/08/2021 2:05:52 PM Referred By: Neal Smith Confirmed By:Neal Sepulveda
--- NOTE | 2021-06-08 14:09 | Electrocardiogram Report ---
Test Reason : Blood Pressure : / mmHG Vent. Rate : 077 BPM Atrial Rate : 077 BPM P-R Int : 186 ms QRS Dur : 106 ms QT Int : 422 ms P-R-T Axes : 000 009 009 degrees QTc Int : 477 ms Sinus rhythm with Fusion complexes Inferior infarct (cited on or before 07-JUN-2021) Cannot rule out Anterior infarct (cited on or before 06-JUN-2021) T wave abnormality, consider lateral ischemia Abnormal ECG When compared with ECG of 08-JUN-2021 01:11, (unconfirmed) Fusion complexes are now Present Confirmed by Neal Sepulveda ([id number]) on 06/08/2021 2:09:17 PM Referred By: Neal Smith Confirmed By:Neal Sepulveda
--- NOTE | 2021-06-08 19:30 | Hospitalist Progress Note ---
Date of Service June 08, 2021 Assessment & Plan (1) Acute renal failure: Plan: Jaspal is a 75-year-old male with past medical history of hypertension and sleep apnea who presented with upper and lower extremity pitting edema, dyspnea on exertion, and an outpatient creatinine recheck of 5.32 from 1.3. Patient had had a 28 pound weight gain in the previous month with concern for cardiorenal syndrome, was recommended for hospital evaluation but deferred to urgent cardiology/nephrology follow-up appointments in June. At 06/05 in PCP office he had had improvement in dyspnea and swelling, but repeat BMP showed a creatinine increased to 8.47 and patient was instructed to present to the emergency department for additional evaluation. Acute renal failure? RPGN Outpatient creatinine 8.47, increased over 7 days from 5.3, baseline 2019 1.3 [employer] phad been started on 20 mg Lasix p.o. daily due to suspicion of cardiorenal syndrome as outpatient with 28 pound weight gain over 1 month. - TTE pending, if any EKG normal sinus rhythm without territorial ST changes Edematous without signs of pulmonary edema on clinical exam Nephrology consulted. Patient continues to have proteinuria. Hypoalbuminemic to 2.6 Patient with clear increased volume, and adequate urine output on Lasix 80 twice daily, increased to 120 IV twice daily. HCTZ/ARB held Started on IV steroids per renal due to high likelihood of RPGN pending paraprotein/nephritis/nephrosis serologies and work-up results. If inconclusive, may require outpatient follow-up renal biopsy. Started on Renvela 3 times daily No pulmonary compromise from fluid, sodium/potassium are not critically abnormal, no indication for urgent dialysis at this time (2) Nephrotic syndrome: Plan: As above (3) Hypertension: Plan: Hold valsartan/HCTZ as above Continue Lasix Amlodipine 10 mg daily Labetalol 200 mg p.o. twice daily Metoprolol tartrate 5 mg IV every 6, hold for bradycardia/hypotension (4) Hypertensive urgency: Plan: As above (5) Sleep apnea: Plan: CPAP nightly as needed Plan: DVT prophylaxis: Heparin subcu Diet: Renal diet, low sodium CODE STATUS: Full code Admission and Anticipated Discharge Date Admission Date: June 06, 2021 Subjective Seen at bedside. Minimal urine output yesterday with increased Lasix dose. Feels the swelling has not changed. Denies shortness of breath, difficulty breathing. Continues to endorse swelling in his hands and feet, a little bit in his abdomen. Denies fever, chills, sweats, shortness of breath, difficulty breathing, pain. Discussed plan of care moving forward, patient in understanding of this. Review of Systems Review of Systems: All systems reviewed & are unremarkable except as noted in Subjective Physical Exam Physical Exam: General: A&Ox3. NAD. Cooperative. BMI 45. HEENT: Atraumatic, normocephalic. Visual acuity and hearing grossly intact Pulm: CTAB A&P. -wheezes, -rales, -rhonchi. Symmetrical chest rise. No increase in work of breathing. No respiratory distress. Cardiac: RRR, -mrg. Radial pulses intact and symmetrical. Abdominal: Nontender, nondistended, soft. BS present. Extremities: Pitting edema of the hands lower extremities bilaterally. Sensation to soft touch intact bilaterally Results & Data Results & Data ([facility]) Vital Signs (Past 12 Hours) Vital Signs Pulse Resp BP 06/08/21 19:15 83 19 153/81 H PG Care Time/CCT Total # of Minutes Spent Total Time Spent with Patient: Total time spent is greater than 50% in coordination of care (as documented) at patient's floor/unit and/or counseling patient: Coding Level of Care Code 33509 Subseq Hosp Care Lvl 3 Diagnoses Acute renal failure N17.9 Nephrotic syndrome N04.9 Hypertension I10 Hypertensive urgency I16.0 Sleep apnea G47.30
[2021-06-09] MEDS: METOPROLOL TARTRATE 1 MG/ML VIAL IV SCH ×4 (06:00→23:08)
[2021-06-09 07:20] LABS: Hematocrit (blood only) 32.3 % (42-52); Hemoglobin 11.3 g/dL (14.0-18.0); Immature Granulocytes # (auto) 0.01 K/uL (0.00-0.02); Immature Granulocytes % (auto) 0.1 %; Lymphocytes # (auto) 0.93 K/uL (1.2-3.4); Lymphocytes % (auto) 13.5 %; Mean Corpuscular Volume 85.7 fL (80-100); Mean Platelet Volume 9.6 fL (7.4-10.4); Monocytes # (auto) 0.12 K/uL (0.11-0.59); Monocytes % (auto) 1.7 %; Neutrophils # (auto) 5.85 K/uL (1.4-6.5); Neutrophils % (auto) 84.7 %; Platelet Count 278 K/uL (130-400); RDW Coefficient of Variation 13.3 % (11.5-14.5); RDW Standard Deviation 41.8 fL (36.4-46.3); Red Blood Count 3.77 M/uL (4.7-6.1); White Blood Count 6.91 K/uL (4.8-10.8)
[2021-06-09] MEDS: amLODIPine BESYLATE 5 MG TAB PO SCH (07:33)
[2021-06-09] MEDS: SEVELAMER HCL 800 MG TABLET PO SCH ×3 (07:33→17:53)
[2021-06-09] MEDS: LABETALOL HCL 200 MG TAB PO SCH ×2 (07:34→20:05)
[2021-06-09] MEDS: HEPARIN SOD 5,000 UNIT/0.5 ML VIAL SQ SCH ×2 (07:36→20:05)
[2021-06-09] MEDS: FUROSEMIDE 40 MG/4 ML VIAL IV SCH ×2 (07:37→18:09)
[2021-06-09] MEDS: methylPREDNISolone 500 MG in DEXTROSE 5% 250 ML IV SCH (07:40)
[2021-06-09 07:54] LABS: Albumin Level 2.3 gm/dl (3.4-5.0); Calcium 7.5 mg/dl (8.5-10.1); Creatinine Clr Calc Pharmacy 8.8 ml/min; Est GFR (African American) 5.4 ml/min; Est GFR (Non-African American) 4.7 ml/min; Phosphorus 9.9 mg/dl (2.5-4.9); Potassium 3.6 mmol/L (3.5-5.1)
--- NOTE | 2021-06-09 08:52 | Hospitalist Progress Note ---
Date of Service June 09, 2021 Assessment & Plan (1) Acute renal failure: Plan: Acute renal failure nephrology consult concern for both nephrotic and nephritic picture, started on high dose steriods pending send out testing, If inconclusive, may require outpatient follow-up renal biopsy. lasix dosing 120mg bid, hold arb/hctz. -Echocardiogram performed 06/07/2021 shows preserved LV size and no regional wall abnormalities but to severe concentric LVH normal estimated right heart pressures Hypoalbuminemic to 2.6 Started on Renvela 3 times daily, phosphorous remains elevated No pulmonary compromise from fluid, sodium/potassium are not critically abnormal, no indication for urgent dialysis at this time (2) Nephrotic syndrome: Plan: As above (3) Hypertension: Plan: Initially with hypertensive urgency Continue Lasix Amlodipine 10 mg daily Labetalol 10 mg p.o. twice daily Metoprolol tartrate 5 mg IV every 6, hold for bradycardia/hypotension Hold valsartan/HCTZ as above (4) Hypertensive urgency: Plan: As above (5) Sleep apnea: Plan: CPAP nightly as needed Plan: DVT prophylaxis: Heparin subcu Diet: Renal diet, low sodium CODE STATUS: Full code Admission and Anticipated Discharge Date Admission Date: June 06, 2021 Subjective this pt is in no new distress he continues to have peripheral edema. He is not short of breath he understands his plan of care did speak with Dr. Samson this morning Review of Systems Review of Systems: Mild distress and fatigue no headache, no visual changes no speech or swallowing issues no chest pain, pressure or palpitations no shortness of breath, cough or wheezes no abdominal pain, nausea or vomiting, diarrhea or constipation no dysuria, hematuria or frequency no focal joint pain, does have some peripheral swelling no back pain, CVA tenderness or radicular pain no bruising, bleeding or rashes no focal signs of weakness or numbness or altered sensation no complaints of anxiety or depression. Physical Exam Physical Exam: The patient appeared well nourished and normally developed. Vital signs as documented. Head exam is normocephalic atraumatic Neck is without JVD, thyromegaly, or carotid bruits. Lungs are with mild bibasilar rales Cardiac exam, Rhythm is regular.. No murmurs, rubs or gallops. Abdominal exam reveals normal bowel sounds, soft non tender, no masses Extremities are edematous does have palpable retained peripheral pulses Neurologic exam is alert and oriented, no focal loss of strength or sensation Skin is without bruises or rashes Psychologically is without concerns for anxiety or depression.. Results & Data Results & Data ([facility]) Vital Signs (Past 12 Hours) Vital Signs Temp Pulse Pulse Resp BP BP Pulse Ox 06/09/21 06:59 97.9 F 72 20 129/63 92 06/09/21 06:22 73 109/63 06/09/21 06:00 60 109/63 06/09/21 02:54 97.9 F 67 17 166/73 H 94 06/08/21 23:38 85 139/71 06/08/21 23:00 76 06/08/21 22:54 98.6 F 77 22 139/71 93 06/08/21 21:46 93 H 06/08/21 21:10 98.1 F 90 16 145/87 H 94 PG Care Time/CCT Total # of Minutes Spent Total Time Spent with Patient: Total time spent is greater than 50% in coordination of care (as documented) at patient's floor/unit and/or counseling patient: Coding Level of Care Code 46790 Subseq Hosp Care Lvl 2 Diagnoses Acute renal failure N17.9 Nephrotic syndrome N04.9 Hypertension I10 Hypertensive urgency I16.0 Sleep apnea G47.30
--- NOTE | 2021-06-09 12:35 | Nephrology Progress Note ---
Date of Service June 09, 2021 Assessment & Plan (1) Nephrotic syndrome: (2) Hypertensive urgency: (3) Hypertension: (4) Acute renal failure: Plan: LARISA with acute nephrotic syndrome and active urine sediment. Etiology unclear. Unfortunately, kidney dysfunction continues to progress. Thankfully, Jaspal is non-oliguric. There is no emergent indication for dialysis currently. He is receiving his second dose of IV methylprednisolone today. BP is improving with therapy. Remains on labetalol 200 mg BID and amlodipine 10 mg daily. JAVIER/ARB deferred due to LARISA. Volume status reasonable. Slightly negative fluid balance with furosemide 120 mg BID. Electrolytes acceptable. Serologic evaluation pending. SPEP/IF pending. 24 hour urine >10 grams. Plan to transition to PO prednisone in next couple of days. If no improvement in kidney function over the weekend, I confirmed with Dr. Dennis that he will not be available on Friday but likely Friday for TDC placement. Ultimately, I anticipate that kidney biopsy will be required for definitive diagnosis which will likely be coordinated as an outpatient. In the interim, continue steroids as Rx'd. Simvastatin 40 mg daily added today. AC not required. Document strict I/O's. Repeat metabolic profile tomorrow AM. Admission and Anticipated Discharge Date Admission Date: June 06, 2021 Subjective No acute events overnight. Jaspal was seen and evaluated in his hospital room this AM. Overall, he feels reasonably well. Edema seems to be improving. He is breathing comfortably. He finds that he is not making as much urine as he would expect given the large doses of diuretics but he denies any difficulty voiding. He reports some constipation but declined stool softeners or laxatives. Appetite has been diminished. No fevers or chills. No myalgias, synovitis, or effusions. Chronic knee pain noted. Activity tolerance stable. He hopes to get out walking in [place] today. Jaspal does report some lightheadedness yesterday when standing for several minutes. He has not experienced anything similar since that time but has not been out of bed. No chest pain or palpitations. Potential future indications for dialysis were discussed in detail. The hemodialysis procedure and TDC were discussed. Jaspal expressed understanding. Review of Systems Review of Systems: All systems reviewed & are unremarkable except as noted in HPI & below Ear, Nose, Mouth, Throat: + hearing loss Physical Exam Constitutional: WD/WN, vitals as above + obese and + edematous; no acute distress Eyes: + anicteric sclerae ENMT: Ears: no hearing impairment Neck: normal visual inspection Thyroid: no thyromegaly Respiratory: normal respiratory effort; no respiratory distress and no cough Auscultation: lungs clear to auscultation bilaterally Cardiovascular: Rate/Rhythm: regular rate and regular rhythm Heart Sounds: normal S1 and normal S2 Extremities: + edema (2 to 3 + b/l LE edema, UE edema) Gastrointestinal (Abdomen): Inspection/Auscultation: + abdominal edema Percussion/Palpation: abdomen soft; abdomen nontender Skin: no rashes Neurologic: no focal motor deficits and not confused Psychiatric: Orientation: alert and oriented x 3 Affect: euthymic affect Results & Data ([facility]) Vital Signs (Past 12 Hours) Vital Signs Temp Pulse Pulse Resp BP BP Pulse Ox 06/09/21 11:34 36.5 C 69 15 167/72 H 94 06/09/21 08:00 68 06/09/21 06:59 36.6 C 72 20 129/63 92 06/09/21 06:22 73 109/63 06/09/21 06:00 60 109/63 06/09/21 02:54 36.6 C 67 17 166/73 H 94 Laboratory Results Laboratory Results - last 24 hr 06/07/21 06/09/21 06/09/21 10:07 07:07 07:07 WBC 6.91 RBC 3.77 L Hgb 11.3 L Hct 32.3 L MCV 85.7 MCH 30.0 MCHC 35.0 RDW Std Deviation 41.8 RDW Coeff of Sophie 13.3 Plt Count 278 MPV 9.6 Immature Gran % (Auto) 0.1 Neut % (Auto) 84.7 Lymph % (Auto) 13.5 [place] % (Auto) 1.7 Eos % (Auto) 0.0 Baso % (Auto) 0.0 Neut # (Auto) 5.85 Lymph # (Auto) 0.93 L [place] # (Auto) 0.12 Eos # (Auto) 0.00 Baso # (Auto) 0.00 Immature Gran # (Auto) 0.01 Sodium 139 Potassium 3.6 Chloride 107 Carbon Dioxide 19 L Anion Gap 13 H BUN 79 H Creatinine 9.84 H* D Est Cr Clr Drug Dosing 8.8 Est GFR ( Amer) 5.4 Est GFR (Non-Af Amer) 4.7 BUN/Creatinine Ratio 8.0 L Glucose 159 H Calcium 7.5 L Phosphorus 9.9 H Albumin 2.3 L Ur Total Protein 24 Hr > 27707.0 H PG Care Time/CCT Total # of Minutes Spent Total Time Spent with Patient: Total time spent is greater than 50% in coordination of care (as documented) at patient's floor/unit and/or counseling patient: Coding Level of Care Code 17756 Subseq Hosp Care Lvl 3 Diagnoses Nephrotic syndrome N04.9 Hypertensive urgency I16.0 Hypertension I10 Acute renal failure N17.9
[2021-06-09] MEDS: SIMVASTATIN 40 MG TAB PO SCH (20:05)
[2021-06-10] MEDS: METOPROLOL TARTRATE 1 MG/ML VIAL IV SCH ×2 (05:28→11:00)
[2021-06-10 06:50] LABS: Hematocrit (blood only) 30.1 % (42-52); Hemoglobin 10.6 g/dL (14.0-18.0); Mean Corpuscular Hemoglobin 30.2 pg (25-34); Mean Corpuscular Hgb Conc 35.2 g/dL (32-36); Mean Corpuscular Volume 85.8 fL (80-100); Mean Platelet Volume 9.8 fL (7.4-10.4); Platelet Count 250 K/uL (130-400); RDW Coefficient of Variation 13.4 % (11.5-14.5); RDW Standard Deviation 41.7 fL (36.4-46.3); Red Blood Count 3.51 M/uL (4.7-6.1); White Blood Count 13.87 K/uL (4.8-10.8)
[2021-06-10 07:22] LABS: Albumin Level 2.3 gm/dl (3.4-5.0); Anion Gap 11 (3-11); BUN Creatinine Ratio 8.8 (10-20); Blood Urea Nitrogen 95 mg/dl (6-23); C Reactive Protein < 0.50 mg/dl (0-0.5); Calcium 7.4 mg/dl (8.5-10.1); Carbon Dioxide 20 mmol/L (21-32); Chloride 106 mmol/L (98-107); Creatine Kinase 158 U/L (30-223); Est GFR (African American) 4.8 ml/min; Est GFR (Non-African American) 4.1 ml/min; Glucose 149 mg/dl (70-99(Fasting)); Potassium 3.7 mmol/L (3.5-5.1); Sodium 137 mmol/L (136-145); Uric Acid 10.1 mg/dl (2.6-7.2)
--- NOTE | 2021-06-10 08:35 | Hospitalist Progress Note ---
Date of Service June 10, 2021 Assessment & Plan (1) Acute renal failure: Plan: Acute renal failure nephrology consult concern for both nephrotic and nephritic picture, started on high dose sterids pending send out testing, If inconclusive, may require outpatient follow-up renal biopsy. lasix dosing 120mg bid, hold arb/hctz. -Echocardiogram performed 06/07/2021 shows preserved LV size and no regional wall abnormalities but to severe concentric LVH normal estimated right heart pressures Hypoalbuminemic to 2.6 Started on Renvela 3 times daily, phosphorous remains elevated No pulmonary compromise from fluid, sodium/potassium are not critically abnormal, no indication for urgent dialysis at this time, looking forward to having tunnel dialysis catheter placed this week and likley need to be started on dialysis and nephrology is considering if renal bx is needed (2) Nephrotic syndrome: Plan: As above (3) Hypertension: Plan: Initially with hypertensive urgency Continue Lasix Amlodipine 10 mg daily Labetalol 10 mg p.o. twice daily Metoprolol tartrate 5 mg IV not needed and stopped Hold valsartan/HCTZ as above (4) Hypertensive urgency: Plan: As above (5) Sleep apnea: Plan: CPAP nightly as needed Plan: DVT prophylaxis: Heparin subcu Diet: Renal diet, low sodium CODE STATUS: Full code Admission and Anticipated Discharge Date Admission Date: June 06, 2021 Subjective pt continues to not have any respiratory difficulties, still with peripheral swelling and having decreasing urine output Review of Systems Review of Systems: Mild distress and fatigue no headache, no visual changes no speech or swallowing issues no chest pain, pressure or palpitations no shortness of breath, cough or wheezes no abdominal pain, nausea or vomiting, diarrhea or constipation no dysuria, hematuria or frequency no focal joint pain, does have persistent peripheral swelling no back pain, CVA tenderness or radicular pain no bruising, bleeding or rashes no focal signs of weakness or numbness or altered sensation no complaints of anxiety or depression. Physical Exam Physical Exam: The patient appeared well nourished and normally developed. Vital signs as documented. Head exam is normocephalic atraumatic Neck is with + JVD, thyromegaly, or carotid bruits. Lungs are with mild bibasilar rales Cardiac exam, Rhythm is regular.. No murmurs, rubs or gallops. Abdominal exam reveals normal bowel sounds, soft non tender, no masses Extremities are edematous does have palpable retained peripheral pulses Neurologic exam is alert and oriented, no focal loss of strength or sensation Skin is without bruises or rashes Psychologically is without concerns for anxiety or depression.. Results & Data Results & Data ([facility]) Vital Signs (Past 12 Hours) Vital Signs Temp Pulse Pulse Resp BP BP Pulse Ox 06/10/21 08:00 97.7 F 67 16 166/69 H 96 06/10/21 07:48 62 06/10/21 05:28 59 L 129/58 L 06/10/21 04:04 97.9 F 61 18 129/58 L 93 06/09/21 23:41 98.1 F 67 18 100/52 L 91 06/09/21 23:08 60 138/62 06/09/21 23:06 63 PG Care Time/CCT Total # of Minutes Spent Total Time Spent with Patient: Total time spent is greater than 50% in coordination of care (as documented) at patient's floor/unit and/or counseling patient: Coding Level of Care Code 57738 Subseq Hosp Care Lvl 2 Diagnoses Acute renal failure N17.9 Nephrotic syndrome N04.9 Hypertension I10 Hypertensive urgency I16.0 Sleep apnea G47.30
[2021-06-10] MEDS: FUROSEMIDE 40 MG/4 ML VIAL IV SCH ×2 (08:41→17:18)
[2021-06-10] MEDS: HEPARIN SOD 5,000 UNIT/0.5 ML VIAL SQ SCH ×2 (08:42→20:26)
[2021-06-10] MEDS: SEVELAMER HCL 800 MG TABLET PO SCH ×3 (08:42→17:18)
[2021-06-10] MEDS: LABETALOL HCL 200 MG TAB PO SCH ×2 (08:42→20:26)
[2021-06-10] MEDS: amLODIPine BESYLATE 5 MG TAB PO SCH (08:42)
[2021-06-10] MEDS: methylPREDNISolone 500 MG in DEXTROSE 5% 250 ML IV SCH (08:43)
[2021-06-10] MEDS: allopurinoL 100 MG TAB PO SCH (10:30)
[2021-06-10] MEDS ORDERED: POLYETHYLENE (MIRALAX) 17 GM PACK PO PRN ×2 (10:38→11:29)
[2021-06-10] MEDS ORDERED: POLYETHYLENE (MIRALAX) 17 GM PACK PO ONE (10:39)
--- NOTE | 2021-06-10 11:35 | Nephrology Progress Note ---
Date of Service June 10, 2021 Assessment & Plan (1) Nephrotic syndrome: (2) Hypertensive urgency: (3) Hypertension: (4) Acute renal failure: Plan: LARISA with acute nephrotic syndrome and active urine sediment. Symptoms started around New Year. Etiology unclear. Unfortunately, kidney dysfunction continues to progress. Urine output notably decreased. I would anticipate starting HD in the next 24-48 hours. There is no emergent indication for dialysis currently. He is receiving his third dose of IV methylprednisolone today. BP is reasonable. Remains on labetalol 200 mg BID and amlodipine 10 mg daily. JAVIER/ARB deferred due to LARISA. Serologic evaluation pending. SPEP/IF pending. 24 hour urine >10 grams. ESRD 48. Plan to transition to PO prednisone tomorrow. I have confirmed with Dr. Dennis that he will be available Friday for TDC placement. Ultimately, kidney biopsy will be required for definitive diagnosis which will be coordinated as an outpatient. If patient's condition deteriorates in the next 24 hours, it would be in his best interest to transfer to a facility with IR support that is able to coordinate kidney biopsy as well as tunneled catheter placement accordingly. In the interim, continue steroids as Rx'd. Simvastatin 40 mg daily added yesterday. Allopurinol 100 mg daily added today. AC not required. Document strict I/O's. Repeat metabolic profile tomorrow AM. Admission and Anticipated Discharge Date Admission Date: June 06, 2021 Subjective No acute events overnight. Edema persists. Urine output reduced. Jaspal otherwise feels well. Plan of care reviewed in detail. patient discussed with Dr. Melgar this AM. Review of Systems Review of Systems: All systems reviewed & are unremarkable except as noted in HPI & below Physical Exam Constitutional: WD/WN, vitals as above + obese and + edematous; no acute distress Eyes: + anicteric sclerae ENMT: Ears: no hearing impairment Neck: normal visual inspection Thyroid: no thyromegaly Respiratory: normal respiratory effort; no respiratory distress and no cough Auscultation: lungs clear to auscultation bilaterally Cardiovascular: Rate/Rhythm: regular rate and regular rhythm Heart Sounds: normal S1 and normal S2 Extremities: + edema (2 to 3 + b/l LE edema, UE edema) Gastrointestinal (Abdomen): Inspection/Auscultation: + abdominal edema Percussion/Palpation: abdomen soft; abdomen nontender Skin: no rashes Neurologic: no focal motor deficits and not confused Psychiatric: Orientation: alert and oriented x 3 Affect: euthymic affect Results & Data ([facility]) Vital Signs (Past 12 Hours) Vital Signs Temp Pulse Pulse Resp BP BP Pulse Ox 06/10/21 11:00 59 L 06/10/21 08:00 36.5 C 67 16 166/69 H 96 06/10/21 07:48 62 06/10/21 05:28 59 L 129/58 L 06/10/21 04:04 36.6 C 61 18 129/58 L 93 06/09/21 23:41 36.7 C 67 18 100/52 L 91 Laboratory Results Laboratory Results - last 24 hr 06/10/21 06/10/21 06/10/21 06:37 06:37 06:37 WBC 13.87 H RBC 3.51 L Hgb 10.6 L Hct 30.1 L MCV 85.8 MCH 30.2 MCHC 35.2 RDW Std Deviation 41.7 RDW Coeff of Sophie 13.4 Plt Count 250 MPV 9.8 ESR 48 H Sodium 137 Potassium 3.7 Chloride 106 Carbon Dioxide 20 L Anion Gap 11 BUN 95 H Creatinine 10.85 H* D Est Cr Clr Drug Dosing 8.0 Est GFR ( Amer) 4.8 Est GFR (Non-Af Amer) 4.1 BUN/Creatinine Ratio 8.8 L Glucose 149 H Uric Acid 10.1 H Calcium 7.4 L Phosphorus 10.0 H Total Creatine Kinase 158 C-Reactive Protein < 0.50 Albumin 2.3 L PG Care Time/CCT Total # of Minutes Spent Total Time Spent with Patient: Total time spent is greater than 50% in coordination of care (as documented) at patient's floor/unit and/or counseling patient: Coding Level of Care Code 57700 Subseq Hosp Care Lvl 3 Diagnoses Nephrotic syndrome N04.9 Hypertensive urgency I16.0 Hypertension I10 Acute renal failure N17.9
[2021-06-10] MEDS: SIMVASTATIN 40 MG TAB PO SCH (20:26)
[2021-06-11 07:02] LABS: Creatinine Ur 134 mg/dL (20-320); Protein, Urine Random 2544 mg/dL (5-25); Ur Protein/Creat Ratio mg/g 18985 mg/g creat (22-128); Urine Abnormal Protein Band 1 DNR mg/dL (NONE DETECTED); Urine Abnormal Protein Band 2 DNR mg/dL (NONE DETECTED); Urine Abnormal Protein Band 3 DNR mg/dL (NONE DETECTED); Urine Protein/Creatinine Ratio 18.985 (0.022-0.128)
--- NOTE | 2021-06-11 07:13 | Hospitalist Progress Note ---
Date of Service June 11, 2021 Assessment & Plan (1) Acute renal failure: Plan: Acute renal failure nephrology consult concern for both nephrotic and nephritic picture, started on high dose sterids pending send out testing, If inconclusive, may require outpatient follow-up renal biopsy. lasix dosing 120mg bid, hold arb/hctz. -Echocardiogram performed 06/07/2021 shows preserved LV size and no regional wall abnormalities but to severe concentric LVH normal estimated right heart pressures Hypoalbuminemic to 2.6 Renvela 3 times daily No pulmonary compromise from fluid, sodium/potassium are not critically abnormal, no indication for urgent dialysis at this time, looking forward to having tunnel dialysis catheter placed this week and likely need to be started on dialysis and nephrology will likely have outpt renal biopsy (2) Nephrotic syndrome: Plan: As above (3) Hypertension: Plan: Initially with hypertensive urgency Continue Lasix Amlodipine 10 mg daily Labetalol 10 mg p.o. twice daily Hold valsartan/HCTZ as above (4) Hypertensive urgency: Plan: As above (5) Sleep apnea: Plan: CPAP nightly as needed Plan: DVT prophylaxis: Heparin subcu Diet: Renal diet, low sodium CODE STATUS: Full code Admission and Anticipated Discharge Date Admission Date: June 06, 2021 Subjective No acute events overnight. Jaspal feels well today. Urine output notably reduced. Edema persists. Breathing comfortably. hopeful for tunneled catheter 06/12/21 Review of Systems Review of Systems: Mild distress and fatigue no headache, no visual changes no speech or swallowing issues no chest pain, pressure or palpitations no shortness of breath, cough or wheezes no abdominal pain, nausea or vomiting, diarrhea or constipation no dysuria, hematuria or frequency no focal joint pain, does have persistent peripheral swelling no back pain, CVA tenderness or radicular pain no bruising, bleeding or rashes no focal signs of weakness or numbness or altered sensation no complaints of anxiety or depression. Physical Exam Physical Exam: The patient appeared well nourished and normally developed. Vital signs as documented. Head exam is normocephalic atraumatic Neck is with + JVD, thyromegaly, or carotid bruits. Lungs are with mild bibasilar rales Cardiac exam, Rhythm is regular.. No murmurs, rubs or gallops. Abdominal exam reveals normal bowel sounds, soft non tender, no masses Extremities are edematous does have palpable retained peripheral pulses Neurologic exam is alert and oriented, no focal loss of strength or sensation Skin is without bruises or rashes Psychologically is without concerns for anxiety or depression.. Results & Data Results & Data ([facility]) Vital Signs (Past 12 Hours) Vital Signs Temp Pulse Pulse Resp BP Pulse Ox 06/11/21 03:14 97.5 F L 63 18 126/69 94 06/10/21 23:01 97.7 F 65 20 131/74 93 06/10/21 20:00 59 L PG Care Time/CCT Total # of Minutes Spent Total Time Spent with Patient: Total time spent is greater than 50% in coordination of care (as documented) at patient's floor/unit and/or counseling patient: Coding Level of Care Code 41230 Subseq Hosp Care Lvl 1 Diagnoses Acute renal failure N17.9 Nephrotic syndrome N04.9 Hypertension I10 Hypertensive urgency I16.0 Sleep apnea G47.30
[2021-06-11 08:13] LABS: BUN Creatinine Ratio 9.3 (10-20); Calcium 7.4 mg/dl (8.5-10.1); Creatinine Clr Calc Pharmacy 7.4 ml/min; Est GFR (African American) 4.3 ml/min; Est GFR (Non-African American) 3.7 ml/min; Phosphorus 10.1 mg/dl (2.5-4.9); Potassium 3.9 mmol/L (3.5-5.1)
[2021-06-11] MEDS: LABETALOL HCL 200 MG TAB PO SCH ×2 (08:53→21:06)
[2021-06-11] MEDS: HEPARIN SOD 5,000 UNIT/0.5 ML VIAL SQ SCH ×2 (08:53→21:06)
[2021-06-11] MEDS: amLODIPine BESYLATE 5 MG TAB PO SCH (08:54)
[2021-06-11] MEDS: allopurinoL 100 MG TAB PO SCH (08:54)
[2021-06-11] MEDS: SEVELAMER HCL 800 MG TABLET PO SCH ×3 (08:54→16:39)
[2021-06-11] MEDS: FUROSEMIDE 40 MG/4 ML VIAL IV SCH (09:01)
[2021-06-11] MEDS: predniSONE 20 MG TAB PO SCH (11:31)
--- NOTE | 2021-06-11 11:44 | Consultation ---
Date of Consultation June 11, 2021 Assessment & Plan (1) Acute renal failure: Pt with LARISA and needs to start HD per nephrology. Planning for permcath insertion tomorrow in OR by Dr Dennis. Procedure, risks, benefits, and alternatives were discussed with pt, he is agreeable. History of Present Illness Reason for Consultation: LARISA Attending Physician: Vignesh Melgar MD History of Present Illness 75 yo m with hx of HTN, GUANACO, admitted with acute renal failure, seen in consultation today for placement of permcath for initiation of HD. Pt admits feeling tired, and noting edema. Denies YUEN, fever, chest pain, SOB, abd pain, N/V, rest pain, claudication, ulcerations, other complaints. Allergies Allergy/AdvReac Type Severity Reaction Status Date / Time codeine AdvReac Intermediate jittery Verified 06/06/21 18:04 morphine AdvReac Intermediate jittery Verified 06/06/21 18:04 Home Medications Medication Instructions Recorded Confirmed Type cyclosporine 0.05 % eye drops in a 1 drops OP Q12H 05/18/19 06/06/21 History dropperette (Restasis) valsartan 320 1 tab PO QAM 05/18/19 06/06/21 History mg-hydrochlorothiazide 25 mg tablet ascorbic acid (vitamin C) 500 mg 500 mg PO QAM 04/04/20 06/06/21 History chewable tablet (Vitamin C) furosemide 20 mg tablet (Lasix) 20 mg PO DAILY 06/01/21 06/06/21 History multivitamin 1 tab PO DAILY 06/01/21 06/06/21 History vitamin B complex 1 tab PO DAILY 06/06/21 06/06/21 History zinc 50 mg tablet 50 mg PO DAILY 06/06/21 06/06/21 History Patient History Medical History Hearing deficit History of pneumonia roughly 5yrs ago--reason for inhaler prn Hypertension Hypertensive urgency Morbid obesity with BMI of 40.0-44.9, adult Nephrotic syndrome Right knee DJD Right knee pain Surgical History History of appendectomy History of carpal tunnel release of both wrists History of colonoscopy with polypectomy History of left cataract surgery History of shoulder surgery right History of wisdom tooth extraction Family History Father Family history of diabetes mellitus Other Diabetes Heart disease Hypertension Kidney disease No family history of adverse response to anesthesia Social History Smoking Status: Never smoker Second Hand Exposure: No; Hx Alcohol Use: No Hx Substance Use: No Preferred Language: Hebrew Communication Ability: Effective Novelty 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 Required: No Beliefs That Will Affect Care: None marital status: Current Living Situation: Spouse current occupational status: retired Feels Safe at Home: Yes Assistive Devices: None Review of Systems Review of Systems: All systems reviewed & are unremarkable except as noted in HPI & below Physical Exam Constitutional: WD/WN, vitals as above + obese, healthy appearing, cooperative, comfortable and + edematous; not in distress ENMT: Ears: no hearing impairment Neck: trachea midline Respiratory: normal respiratory effort, lungs clear to auscultation Auscultation: + diminished lung sounds Cardiovascular: Rate/Rhythm: regular rate and regular rhythm Vessels: femoral pulses present, posterior tibial pulses present, dorsalis pedis pulses p resent and radial pulses present; + abnormal peripheral pulses Extremities: normal capillary refill and + edema Gastrointestinal (Abdomen): Inspection/Auscultation: abdomen normal to inspection and normal bowel sounds Percussion/Palpation: abdomen soft; abdomen nontender Musculoskeletal: no cyanosis or clubbing, extremities motor strength 5/5 Skin: no rashes, warm and dry Neurologic: moves all extremities and awake; no focal motor deficits and not confused Psychiatric: A+Ox3, euthymic affect Results & Data ([facility]) Vital Signs (Past 12 Hours) Vital Signs Temp Pulse Pulse Resp BP Pulse Ox 06/11/21 07:57 37.2 C 90 18 126/71 97 06/11/21 07:36 60 06/11/21 03:14 36.4 C L 63 18 126/69 94
--- NOTE | 2021-06-11 11:52 | Nephrology Progress Note ---
Date of Service June 11, 2021 Assessment & Plan (1) Nephrotic syndrome: (2) Hypertensive urgency: (3) Hypertension: (4) Acute renal failure: Plan: LARISA with acute nephrotic syndrome and active urine sediment. Symptoms started around New Year. Etiology unclear. Unfortunately, kidney dysfunction continues to progress. Urine output notably decreased. Vascular surgery has been consulted for TDC placement. Catheter anticipated tomorrow. Plan to start HD once catheter in place. I will ask the manager rn case to being working on arrangements for HD post discharge at [facility]. A kidney biopsy will also need to be coordinated as an outpatient for definitive diagnosis. Completed his third dose of IV methylprednisolone yesterday. Started prednisone 80 mg daily today for extended taper. BP is reasonable. Remains on labetalol 200 mg BID and amlodipine 10 mg daily. JAVIER/ARB deferred due to LARISA. Serologic evaluation pending. SPEP/IF pending. 24 hour urine >10 grams. ESRD 48. Continue steroids as Rx'd. Simvastatin 40 mg daily. Allopurinol 100 mg daily. Anticoagulation not required. Document strict I/O's. Repeat metabolic profile tomorrow AM. Admission and Anticipated Discharge Date Admission Date: June 06, 2021 Subjective No acute events overnight. Jaspal feels well today. Urine output notably reduced. Edema persists. Breathing comfortably. Review of Systems Review of Systems: All systems reviewed & are unremarkable except as noted in HPI & below Physical Exam Constitutional: WD/WN, vitals as above + obese and + edematous; no acute distress Eyes: + anicteric sclerae ENMT: Ears: no hearing impairment Neck: normal visual inspection Thyroid: no thyromegaly Respiratory: normal respiratory effort; no respiratory distress and no cough Auscultation: lungs clear to auscultation bilaterally Cardiovascular: Rate/Rhythm: regular rate and regular rhythm Heart Sounds: normal S1 and normal S2 Extremities: + edema Gastrointestinal (Abdomen): Inspection/Auscultation: + abdominal edema Percussion/Palpation: abdomen soft; abdomen nontender Skin: no rashes Neurologic: no focal motor deficits and not confused Psychiatric: Orientation: alert and oriented x 3 Affect: euthymic affect Results & Data ([facility]) Vital Signs (Past 12 Hours) Vital Signs Temp Pulse Pulse Resp BP Pulse Ox 06/11/21 07:57 37.2 C 90 18 126/71 97 02/07/22 07:36 60 06/11/21 03:14 36.4 C L 63 18 126/69 94 Laboratory Results Laboratory Results - last 24 hr 06/07/21 06/11/21 11:45 07:29 Sodium 135 L Potassium 3.9 Chloride 104 Carbon Dioxide 19 L Anion Gap 12 H BUN 109 H Creatinine 11.78 H* D Est Cr Clr Drug Dosing 7.4 Est GFR ( Amer) 4.3 Est GFR (Non-Af Amer) 3.7 BUN/Creatinine Ratio 9.3 L Glucose 145 H Calcium 7.4 L Phosphorus 10.1 H U Random Total Protein 2544 H Ur Creatinine mg/dL 134 Protein/Creatinin Ratio 18.985 H Urine Albumin (%) 54 U Qwazf-4-Praiqdho (%) 11 U Zuoxu-8-Gnkfybvg (%) 10 U Beta Globulin (%) 13 U Gamma Globulin (%) 12 U Abnormal Prot Band 1 DNR U Abnormal Prot Band 2 DNR U Abnormal Prot Band 3 DNR Urine PEP Interpret SEE NOTE PG Care Time/CCT Total # of Minutes Spent Total Time Spent with Patient: Total time spent is greater than 50% in coordination of care (as documented) at patient's floor/unit and/or counseling patient: Coding Level of Care Code 50868 Subseq Hosp Care Lvl 3 Diagnoses Nephrotic syndrome N04.9 Hypertensive urgency I16.0 Hypertension I10 Acute renal failure N17.9
[2021-06-11 15:31] LABS: Albumin 2.1 g/dL (3.8-4.8); Alpha 1 Globulin 0.3 g/dL (0.2-0.3); Alpha 2 Globulin 0.9 g/dL (0.5-0.9); Beta-1-Globulin 0.2 g/dL (0.4-0.6); Beta-2-Globulin 0.3 g/dL (0.2-0.5); Complement C3 125 mg/dL (82-185); Free Kappa 90.9 mg/L (3.3-19.4); Free Lambda 56.9 mg/L (5.7-26.3); Gamma Globulin 0.4 g/dL (0.8-1.7); Monoclonal Protein Band 1 DNR g/dL (NONE DETECTED); Monoclonal Protein Band 2 DNR g/dL (NONE DETECTED); Monoclonal Protein Band 3 DNR g/dL (NONE DETECTED); Total Protein 4.3 g/dL (6.1-8.1)
[2021-06-11 17:01] LABS: Alpha 1 Globulin 0.3 g/dL (0.2-0.3); Alpha 2 Globulin 0.9 g/dL (0.5-0.9); Beta-1-Globulin 0.2 g/dL (0.4-0.6); Beta-2-Globulin 0.3 g/dL (0.2-0.5); Gamma Globulin 0.4 g/dL (0.8-1.7); Monoclonal Protein Band 1 DNR g/dL (NONE DETECTED); Monoclonal Protein Band 2 DNR g/dL (NONE DETECTED); Monoclonal Protein Band 3 DNR g/dL (NONE DETECTED); Total Protein 4.1 g/dL (6.1-8.1)
[2021-06-11] MEDS: SIMVASTATIN 40 MG TAB PO SCH (21:06)
[2021-06-12] MEDS: SEVELAMER HCL 800 MG TABLET PO SCH ×3 (07:47→17:10)
[2021-06-12] MEDS: predniSONE 20 MG TAB PO SCH (07:47)
[2021-06-12] MEDS: amLODIPine BESYLATE 5 MG TAB PO SCH (07:48)
[2021-06-12] MEDS: HEPARIN SOD 5,000 UNIT/0.5 ML VIAL SQ SCH ×2 (07:48→19:53)
[2021-06-12] MEDS: allopurinoL 100 MG TAB PO SCH (07:48)
[2021-06-12] MEDS: LABETALOL HCL 200 MG TAB PO SCH ×2 (07:48→19:53)
[2021-06-12] MEDS ORDERED: LIDOCAINE 1% LOCAL 20 ML VIAL ONE (09:38)
[2021-06-12] MEDS ORDERED: MIDAZOLAM HCL 1 MG/ML 2ML VIAL ONE (09:38)
[2021-06-12] MEDS ORDERED: fentaNYL citrate 100 MCG/2 ML VIAL ONE (09:38)
--- NOTE | 2021-06-12 09:53 | Nephrology Progress Note ---
Date of Service June 12, 2021 Assessment & Plan (1) Nephrotic syndrome: (2) Hypertensive urgency: (3) Hypertension: (4) Acute renal failure: Plan: LARISA with acute nephrotic syndrome and active urine sediment. Etiology unclear. Unfortunately, kidney dysfunction progressed to LARISA requiring dialysis. Hemodialysis catheter to be placed today. Orders for first HD treatment have been entered into the EHR and reviewed with the dialysis nurse. Case management is working on outpatient HD arrangements at [facility]. A kidney biopsy will also need to be coordinated as an outpatient for definitive diagnosis. I have consulted case management to help with this. Completed his third dose of IV methylprednisolone 06/10. Started prednisone 80 mg daily with plans for an extended taper. BP is reasonable. Remains on labetalol 200 mg BID and amlodipine 10 mg daily. JAVIER/ARB deferred due to LARISA. Serologic evaluation pending. SPEP/IF pending. 24 hour urine >10 grams. ESRD 48. Continue steroids as Rx'd. Simvastatin 40 mg daily. Allopurinol 100 mg daily. Anticoagulation not required. Document strict I/O's. Repeat metabolic profile tomorrow AM. Dietary consultation for additional information on fluid restriction and low sodium diet has been requested by the patient. I established with him today that primary focus is on a low sodium diet (<2000 mg daily) and daily fluid restriction of 1.5 L. Admission and Anticipated Discharge Date Admission Date: June 06, 2021 Subjective No acute events overnight. Jaspal feels well today. Some anxiety noted. Multiple questions regarding diet. Review of Systems Review of Systems: All systems reviewed & are unremarkable except as noted in HPI & below Physical Exam Constitutional: WD/WN, vitals as above + obese and + edematous; no acute distress Eyes: + anicteric sclerae ENMT: Ears: no hearing impairment Neck: normal visual inspection Thyroid: no thyromegaly Respiratory: normal respiratory effort; no respiratory distress and no cough Auscultation: lungs clear to auscultation bilaterally Cardiovascular: Rate/Rhythm: regular rate and regular rhythm Heart Sounds: normal S1 and normal S2 Extremities: + edema Gastrointestinal (Abdomen): Inspection/Auscultation: + abdominal edema Percussion/Palpation: abdomen soft; abdomen nontender Skin: no rashes Neurologic: no focal motor deficits and not confused Psychiatric: Orientation: alert and oriented x 3 Affect: euthymic affect Results & Data ([facility]) Vital Signs (Past 12 Hours) Vital Signs Temp Pulse Pulse Resp BP Pulse Ox 06/12/21 09:33 36.4 C L 73 20 167/76 H 97 06/12/21 08:00 36.6 C 88 18 140/63 98 06/12/21 03:30 36.7 C 62 16 138/62 95 06/12/21 00:21 57 L 06/11/21 23:32 36.8 C 59 L 18 134/63 96 Laboratory Results Laboratory Results - last 24 hr 06/07/21 06/08/21 10:20 05:23 Total Protein (PEP) 4.3 L 4.1 L Albumin (PEP) 2.1 L 2.0 L Tfskn-7-Gtohmdcbs 0.3 0.3 Owhxm-6-Itbnclebg 0.9 0.9 Rlul-6-Ldacvhtl 0.2 L 0.2 L Qpvm-3-Qcwikoms 0.3 0.3 Gamma Globulins 0.4 L 0.4 L Monoclonal Peak 3 DNR DNR Ser Monoclonl Protein DNR DNR Ser Monoclonal Prot 2 DNR DNR PEP Interpretation SEE NOTE SEE NOTE Complement C3 125 Complement C4 35 Free [place] LC, Quant 90.9 H Free Lambda LC, Quant 56.9 H Free [place]/Lambda Ratio 1.60 PG Care Time/CCT Total # of Minutes Spent Total Time Spent with Patient: Total time spent is greater than 50% in coordination of care (as documented) at patient's floor/unit and/or counseling patient: Coding Level of Care Code 47699 Subseq Hosp Care Lvl 3 Diagnoses Nephrotic syndrome N04.9 Hypertensive urgency I16.0 Hypertension I10 Acute renal failure N17.9
--- NOTE | 2021-06-12 10:09 | History & Physical Bridge Note ---
Date of Service June 12, 2021 History & Physical Bridge Note Patient for insertion of permcath for dialysis. I have discussed the risks options and benefits of the procedure with the patient. The patient understands the risks options and benefits and agrees to the procedure. I have examined the patient, reviewed the History & Physical and in the interval since the performance of the History & Physical I have noted the following changes of clinical significance: no changes noted
[2021-06-12] MEDS ORDERED: HEPARIN SOD (PORCINE) 5,000 UNITS/ML VIAL ONE (10:43)
--- NOTE | 2021-06-12 11:08 | Pre Anesthesia Assessment ---
Date of Service June 12, 2021 Pre Sedation Assessment Vital Signs Temp Pulse Pulse Resp BP Pulse Ox 06/12/21 11:05 61 16 121/71 99 06/12/21 11:00 62 16 127/69 99 06/12/21 10:55 66 16 129/69 99 06/12/21 10:50 65 16 129/68 99 06/12/21 10:45 63 16 140/68 99 06/12/21 10:14 60 06/12/21 09:33 36.4 C L 73 20 167/76 H 97 06/12/21 08:00 36.6 C 88 18 140/63 98 06/12/21 03:30 36.7 C 62 16 138/62 95 06/12/21 00:21 57 L 06/11/21 23:32 36.8 C 59 L 18 134/63 96 06/11/21 21:04 62 131/69 97 06/11/21 20:01 36.4 C L 60 18 138/63 97 06/11/21 15:45 36.3 C L 82 16 145/76 H 96 06/11/21 14:48 76 06/11/21 11:51 36.4 C L 66 16 141/68 H 95 Cardiovascular RRR, no murmur, no edema Respiratory normal respiratory effort, lungs clear to auscultation Pre-Sedation Airway Assessment Smoking Status: Never smoker Hx Sleep Apnea: No Short, Thick Neck: No Thyromental Distance: > or= 3.5 Finger Breadths Oral Cavity: + WNL Mallampati Class: II ASA: ASA4 NPO Status Date of Last Intake of Fluids: 06/12/21 Time of Last Intake of Fluids: 07:00 Date of Last Intake of Solid Food: 06/11/21 Time of Last Intake of Solid Foods: 18:00 Procedure Planning Contraindications for Sedation: none Current Medications Reviewed: Yes Notes The planned sedation has been discussed with the patient. Informed Consent was obtained. I have identified the patient, determined the appropriateness of sedation and have assessed the patient immediately prior to the procedure. All medicine(s) and interventions are by my order.
--- NOTE | 2021-06-12 11:10 | Post Anesthesia Assessment ---
Date of Service June 12, 2021 Post Sedation Assessment Vital Signs Temp Pulse Pulse Resp BP Pulse Ox 06/12/21 11:05 61 16 121/71 99 06/12/21 11:00 62 16 127/69 99 06/12/21 10:55 66 16 129/69 99 06/12/21 10:50 65 16 129/68 99 06/12/21 10:45 63 16 140/68 99 06/12/21 10:14 60 06/12/21 09:33 36.4 C L 73 20 167/76 H 97 06/12/21 08:00 36.6 C 88 18 140/63 98 06/12/21 03:30 36.7 C 62 16 138/62 95 06/12/21 00:21 57 L 06/11/21 23:32 36.8 C 59 L 18 134/63 96 06/11/21 21:04 62 131/69 97 06/11/21 20:01 36.4 C L 60 18 138/63 97 06/11/21 15:45 36.3 C L 82 16 145/76 H 96 06/11/21 14:48 76 06/11/21 11:51 36.4 C L 66 16 141/68 H 95 Recovery Score Activity: Moves 4 extremities Respiration: Deep Breath/Cough Circulation: +/-20% PreAnes Value Consciousness: Fully Awake Oxygen Saturation: > 92% On Room Air Post Anesthesia Score: 10 Discharge Sedation Level of Care: Fast Track Phase II Post Sedation Plan On clinical assessment, the patient appears to have tolerated the sedation without complications. Patient is recovering as anticipated. Patient will continue to be monitored by nursing and may be discharged when sedation discharge criteria are met per below protocol. Upon Completions of procedure up to 15 minutes continue every 5 minute vital signs and the P.A.R. score; then discharge to a Phase I or Fast Track to Phase II per the following guidelines: * Discharge Patient to appropriate Phase II area if PAR is 8 or greater or return to pre- procedure baseline. The post - procedure orders will be as directed. * If PAR score is less than 8 or not return to pre-procedure baseline then patient will follow Phase I monitoring till PAR is reached for Phase II. The Phase I may be done in procedure room or may call to secure a Phase I area. * If naloxone or flumazenil are used for reversal, hold in Phase I for continued monitoring from when last reversal dose was given for a minimum of 60 minutes or longer pending the nurse and/or physician discretion of patient condition before discharge to Phase II. Please call the Sedation Physician to re-evaluate and complete post-note for discharge to Phase II area. Do NOT discharge from procedure sedation or Phase 1 until post- sedation evaluation note is complete by procedure /sedation MD Sedation Discharge Instructions to be given to the patient at discharge to home.
--- NOTE | 2021-06-12 11:10 | Operative Report ---
Post Operative Report Pre & Post Diagnosis Operation Date: 06/12/21 13:40 Pre-Op Diagnosis: ACUTE RENAL FAILURE Post-Op Diagnosis: ACUTE RENAL FAILURE I identified the patient and participated in the time-out.: Yes Procedure Operation Date: 06/12/21 13:40 Actual Procedures p Perm Catheter Placement, Right Jugular Vein, Ultrasound localization of right jugular vein, Fluoroscopy for positioning, Moderate Sedation [id number](Right) - Steven Dennis MD Surgeon Steven Dennis MD Framing Consultant none Estimated Blood Loss 5 Findings Consistent with Post-Op Diagnosis Specimens none Anesthesia Type RN Sedation Complications none Disposition Accompanied Patient To Recovery: No Disposition: Recovery Room Indications This is a 75-year-old gentleman acute renal failure. He is in need of dialysis. PermCath was recommended. I have discussed the risks options and benefits of the procedure with the patient. The patient understands the risks options and benefits and agrees to the procedure. Description of Procedure Patient was taken to the angio suite and placed in the supine position. The right side of the neck and chest wall were prepped and draped in a sterile manner. The patient was identified and a timeout performed. Local anesthesia was then administered to the appropriate areas of the neck and chest wall. Ultrasound was then used to locate the right internal jugular vein. The vein compressed easily, had no filing defects, and was patent. The vein was then punctured under direct ultrasound imaging. A guidewire was then passed centrally under fluoroscopic imaging. A stab wound was then made in the anterior chest wall and a 19 cm permcath was passed from the stab wound on the chest wall to the puncture site on the neck. The puncture site was then dilated till the 14Fr peel away sheath was inserted. The permcath was then inserted through the sheath to a central position in the distal superior vena cava. The peel away sheath was then removed. The catheter was then sutured in place using nylon sutures. The puncture was then closed using a 4-0 Vicryl subcuticular suture. Dermabond was used for a dressing on the puncture site. Both ports aspirated and flushed easily and were then packed with heparin. A sterile dressing was applied to the catheter. The patient left the operation room in satisfactory condition and tolerated the procedure well. All needle and sponge counts were correct at the end of the procedure. I attest to the content of the Intraoperative Record and any orders documented therein. Any exceptions are noted below.
--- NOTE | 2021-06-12 14:48 | Hospitalist Progress Note ---
Date of Service June 12, 2021 Assessment & Plan (1) Acute renal failure: Plan: Acute renal failure nephrology consult concern for both nephrotic and nephritic picture, started on high dose sterids pending send out testing, If inconclusive, may require outpatient follow-up renal biopsy. lasix dosing 120mg bid, hold arb/hctz. -Echocardiogram performed 06/07/2021 shows preserved LV size and no regional wall abnormalities but to severe concentric LVH normal estimated right heart pressures Hypoalbuminemic to 2.6 Renvela 3 times daily 06/12/21 tunnel dialysis catheter placed started on dialysis (2) Nephrotic syndrome: Plan: As above (3) Hypertension: Plan: Initially with hypertensive urgency Continue Lasix Amlodipine 10 mg daily Labetalol 10 mg p.o. twice daily Hold valsartan/HCTZ as above (4) Hypertensive urgency: Plan: As above (5) Sleep apnea: Plan: CPAP nightly as needed Plan: DVT prophylaxis: Heparin subcu Diet: Renal diet, low sodium CODE STATUS: Full code Admission and Anticipated Discharge Date Admission Date: June 06, 2021 Subjective No acute events overnight. seen after perm cath placed in right chest, for dialysis this [id number] Review of Systems Review of Systems: Mild distress and fatigue no headache, no visual changes no speech or swallowing issues minor discomfort at right upper chest site no shortness of breath, cough or wheezes no abdominal pain, nausea or vomiting, diarrhea or constipation no dysuria, hematuria or frequency no focal joint pain, does have persistent peripheral swelling no back pain, CVA tenderness or radicular pain no bruising, bleeding or rashes no focal signs of weakness or numbness or altered sensation no complaints of anxiety or depression. Physical Exam Physical Exam: The patient appeared well nourished and normally developed. Vital signs as documented. Head exam is normocephalic atraumatic Neck is with + JVD, thyromegaly, or carotid bruits. permcath site looks c/d/i Lungs are with mild bibasilar rales Cardiac exam, Rhythm is regular.. No murmurs, rubs or gallops. Abdominal exam reveals normal bowel sounds, soft non tender, no masses Extremities are edematous does have palpable retained peripheral pulses Neurologic exam is alert and oriented, no focal loss of strength or sensation Skin is without bruises or rashes Psychologically is without concerns for anxiety or depression.. Results & Data Results & Data ([facility]) Vital Signs (Past 12 Hours) Vital Signs Temp Pulse Pulse Resp BP BP Pulse Ox 06/12/21 14:40 56 L 152/81 H 06/12/21 14:20 56 L 150/82 H 06/12/21 14:00 58 L 131/73 06/12/21 13:40 138/74 06/12/21 13:20 169/85 H 06/12/21 13:09 97.5 F L 60 06/12/21 12:36 97.9 F 59 L 18 120/70 95 06/12/21 12:06 97.9 F 64 18 115/70 93 06/12/21 11:51 97.9 F 65 18 112/53 L 93 06/12/21 11:36 97.9 F 59 L 18 103/62 93 06/12/21 11:21 97.5 F L 60 18 116/66 95 06/12/21 11:10 61 16 122/71 99 06/12/21 11:05 61 16 121/71 99 06/12/21 11:00 62 16 127/69 99 06/12/21 10:55 66 16 129/69 99 06/12/21 10:50 65 16 129/68 99 06/12/21 10:45 63 16 140/68 99 06/12/21 10:14 60 06/12/21 09:33 97.5 F L 73 20 167/76 H 97 06/12/21 08:00 97.9 F 88 18 140/63 98 06/12/21 03:30 98.1 F 62 16 138/62 95 PG Care Time/CCT Total # of Minutes Spent Total Time Spent with Patient: Total time spent is greater than 50% in coordination of care (as documented) at patient's floor/unit and/or counseling patient: Coding Level of Care Code 28453 Subseq Hosp Care Lvl 1 Diagnoses Acute renal failure N17.9 Nephrotic syndrome N04.9 Hypertension I10 Hypertensive urgency I16.0 Sleep apnea G47.30
[2021-06-12] MEDS: SIMVASTATIN 40 MG TAB PO SCH (19:53)
[2021-06-13 07:27] LABS: Hematocrit (blood only) 32.1 % (42-52); Hemoglobin 11.3 g/dL (14.0-18.0); Mean Corpuscular Hemoglobin 30.2 pg (25-34); Mean Corpuscular Hgb Conc 35.2 g/dL (32-36); Mean Corpuscular Volume 85.8 fL (80-100); Mean Platelet Volume 10.6 fL (7.4-10.4); Platelet Count 214 K/uL (130-400); RDW Coefficient of Variation 13.1 % (11.5-14.5); RDW Standard Deviation 41.1 fL (36.4-46.3); Red Blood Count 3.74 M/uL (4.7-6.1); White Blood Count 10.31 K/uL (4.8-10.8)
[2021-06-13] MEDS: SEVELAMER HCL 800 MG TABLET PO SCH ×3 (07:30→17:15)
[2021-06-13 07:51] LABS: Est GFR (African American) 4.8 ml/min; Est GFR (Non-African American) 4.1 ml/min
[2021-06-13 07:52] LABS: BUN Creatinine Ratio 10.2 (10-20); Calcium 7.3 mg/dl (8.5-10.1); Phosphorus 9.4 mg/dl (2.5-4.9)
--- NOTE | 2021-06-13 10:22 | Nephrology Progress Note ---
Date of Service June 13, 2021 Assessment & Plan (1) Nephrotic syndrome: (2) Hypertensive urgency: (3) Hypertension: (4) Acute renal failure: Plan: LARISA with acute nephrotic syndrome (>10 g/24 hr) and active urine sediment. Etiology unclear. UPEP equivocal but FLC not suggestive of gammopathy. We cannot at this time completely exclude possible fibrillary or amyloid but appears unlikely. PLA2r pending. Serologic evaluation for FN notable for normal C3 and C4. CHANG, ANCA, aBM pending. Though RPGN appears less likely. HD catheter placed by Dr. Dennis 06/12. First HD treatment completed 06/12. Jaspal was seen and evaluated during his second dialysis treatment today. Orders were entered into the EMR and reviewed with the HD nurse. Waiting on confirmation and a chair time for dialysis at [facility]. IR at [facility] has been contacted by case management to arrange outpatient kidney biopsy post discharge. Completed his third dose of IV methylprednisolone 06/10. Started prednisone 80 mg daily with plans for an extended taper. This dose of prednisone will be continued pending kidney biopsy and definitive diagnosis. At discharge, I would suggest prophylactic Bactrim (1 DS tablet 3 x weekly would be acceptable). BP is reasonable. Remains on labetalol 200 mg BID and amlodipine 10 mg daily. JAVIER/ARB deferred due to LARISA. Continue Simvastatin 40 mg daily. Allopurinol 100 mg daily. Anticoagulation not required. Document strict I/O's. Repeat metabolic profile tomorrow AM, if Jaspal remains inpatient. Dietary restrictions include low sodium diet (<2000 mg daily) and daily fluid restriction of 1.5 L. Admission and Anticipated Discharge Date Admission Date: June 06, 2021 Subjective No acute events overnight. HD catheter placed without complications. First dialysis treatment completed yesterday without complications. Tolerated dialysis well. Review of Systems Review of Systems: All systems reviewed & are unremarkable except as noted in HPI & below Physical Exam Constitutional: WD/WN, vitals as above + obese and + edematous; no acute distress Eyes: + anicteric sclerae ENMT: Ears: no hearing impairment Neck: normal visual inspection Thyroid: no thyromegaly Respiratory: normal respiratory effort; no respiratory distress and no cough Auscultation: lungs clear to auscultation bilaterally Cardiovascular: Rate/Rhythm: regular rate and regular rhythm Heart Sounds: normal S1 and normal S2 Extremities: + edema Gastrointestinal (Abdomen): Inspection/Auscultation: + abdominal edema Percussion/Palpation: abdomen soft; abdomen nontender Skin: no rashes Neurologic: Motor/Sensory: no tremor and no asterixis Psychiatric: Orientation: alert and oriented x 3 Results & Data ([facility]) Vital Signs (Past 12 Hours) Vital Signs Temp Pulse Pulse Resp BP Pulse Ox 06/13/21 08:00 60 06/13/21 07:40 36.5 C 60 16 136/74 97 06/13/21 03:53 36.8 C 60 14 135/69 93 06/12/21 23:01 36.6 C 60 18 142/60 H 95 Laboratory Results Laboratory Results - last 24 hr 06/12/21 06/13/21 06/13/21 16:14 07:02 07:02 WBC 10.31 RBC 3.74 L Hgb 11.3 L Hct 32.1 L MCV 85.8 MCH 30.2 MCHC 35.2 RDW Std Deviation 41.1 RDW Coeff of Sophie 13.1 Plt Count 214 MPV 10.6 H Sodium 135 L Potassium 4.0 Chloride 103 Carbon Dioxide 19 L Anion Gap 13 H BUN 111 H Creatinine 10.90 H* D Est Cr Clr Drug Dosing 8.0 Est GFR ( Amer) 4.8 Est GFR (Non-Af Amer) 4.1 BUN/Creatinine Ratio 10.2 Glucose 123 H POC Glucose 161 H Calcium 7.3 L Phosphorus 9.4 H PG Care Time/CCT Total # of Minutes Spent Total Time Spent with Patient: Total time spent is greater than 50% in coordination of care (as documented) at patient's floor/unit and/or counseling patient: Coding Level of Care Code 04670 Subseq Hosp Care Lvl 3 Diagnoses Nephrotic syndrome N04.9 Hypertensive urgency I16.0 Hypertension I10 Acute renal failure N17.9
[2021-06-13] MEDS: amLODIPine BESYLATE 5 MG TAB PO SCH (12:14)
[2021-06-13] MEDS: predniSONE 20 MG TAB PO SCH (12:14)
[2021-06-13] MEDS: DOCUSATE SODIUM 100 MG CAP PO SCH ×2 (12:14→20:37)
[2021-06-13] MEDS: allopurinoL 100 MG TAB PO SCH (12:15)
[2021-06-13] MEDS: LABETALOL HCL 200 MG TAB PO SCH ×2 (12:15→20:38)
[2021-06-13] MEDS: HEPARIN SOD 5,000 UNIT/0.5 ML VIAL SQ SCH ×2 (12:15→20:37)
--- NOTE | 2021-06-13 18:54 | Hospitalist Progress Note ---
Date of Service June 13, 2021 Assessment & Plan (1) Acute renal failure: Plan: Acute renal failure nephrology consult concern for both nephrotic and nephritic picture, started on high dose sterids pending send out testing, If inconclusive, may require outpatient follow-up renal biopsy. lasix dosing 120mg bid, hold arb/hctz. -Echocardiogram performed 06/07/2021 shows preserved LV size and no regional wall abnormalities but to severe concentric LVH normal estimated right heart pressures Hypoalbuminemic to 2.6 Renvela 3 times daily 06/12/21 tunnel dialysis catheter placed started on dialysis (2) Nephrotic syndrome: Plan: As above (3) Hypertension: Plan: Initially with hypertensive urgency Continue Lasix Amlodipine 10 mg daily Labetalol 10 mg p.o. twice daily Hold valsartan/HCTZ as above (4) Hypertensive urgency: Plan: As above (5) Sleep apnea: Plan: CPAP nightly as needed Plan: DVT prophylaxis: Heparin subcu Diet: Renal diet, low sodium CODE STATUS: Full code Admission and Anticipated Discharge Date Admission Date: June 06, 2021 Subjective No acute events overnight. HD catheter placed without complications. First dialysis treatment completed 06/12, again 06/13 without complications. Tolerated dialysis well. Review of Systems Review of Systems: Mild distress and fatigue no headache, no visual changes no speech or swallowing issues minor discomfort at right upper chest site no shortness of breath, cough or wheezes no abdominal pain, nausea or vomiting, diarrhea or constipation no dysuria, hematuria or frequency no focal joint pain, does have persistent peripheral swelling no back pain, CVA tenderness or radicular pain no bruising, bleeding or rashes no focal signs of weakness or numbness or altered sensation no complaints of anxiety or depression. Physical Exam Physical Exam: The patient appeared well nourished and normally developed. Vital signs as documented. Head exam is normocephalic atraumatic Neck is with + JVD, thyromegaly, or carotid bruits. permcath site looks c/d/i Lungs are with mild bibasilar rales Cardiac exam, Rhythm is regular.. No murmurs, rubs or gallops. Abdominal exam reveals normal bowel sounds, soft non tender, no masses Extremities are edematous does have palpable retained peripheral pulses Neurologic exam is alert and oriented, no focal loss of strength or sensation Skin is without bruises or rashes Psychologically is without concerns for anxiety or depression.. Results & Data Results & Data ([facility]) Vital Signs (Past 12 Hours) Vital Signs Temp Pulse Pulse Pulse Resp BP BP 06/13/21 16:00 98.2 F 57 L 60 16 166/75 H 06/13/21 12:00 97.7 F 60 18 173/75 H 06/13/21 11:56 98.6 F 57 L 187/93 H 06/13/21 11:47 59 L 161/96 H 06/13/21 11:20 53 L 172/81 H 06/13/21 11:00 53 L 172/81 H 06/13/21 10:40 54 L 162/83 H 06/13/21 10:20 55 L 154/79 H 06/13/21 10:00 56 L 143/81 H 06/13/21 09:40 57 L 160/84 H 06/13/21 09:20 60 163/86 H 06/13/21 09:00 65 190/88 H 06/13/21 08:55 96.8 F L 67 06/13/21 08:00 60 06/13/21 07:40 97.7 F 60 16 136/74 Pulse Ox 06/13/21 16:00 97 06/13/21 12:00 97 06/13/21 11:56 06/13/21 11:47 06/13/21 11:20 06/13/21 11:00 06/13/21 10:40 06/13/21 10:20 06/13/21 10:00 06/13/21 09:40 06/13/21 09:20 06/13/21 09:00 06/13/21 08:55 06/13/21 08:00 06/13/21 07:40 97 PG Care Time/CCT Total # of Minutes Spent Total Time Spent with Patient: Total time spent is greater than 50% in coordination of care (as documented) at patient's floor/unit and/or counseling patient: Coding Level of Care Code 04341 Subseq Hosp Care Lvl 2 Diagnoses Acute renal failure N17.9 Nephrotic syndrome N04.9 Hypertension I10 Hypertensive urgency I16.0 Sleep apnea G47.30
[2021-06-13] MEDS: SIMVASTATIN 40 MG TAB PO SCH (20:38)
[2021-06-14 00:16] LABS: ANCA Screen Negative (Negative); Anti-dsDNA Recombinant <1 IU/mL; Myeloperoxidase Ab <1.0 AI (<1.0); Proteinase-3 AB <1.0 AI (<1.0)
[2021-06-14] MEDS: SEVELAMER HCL 800 MG TABLET PO SCH ×2 (08:01→12:21)
[2021-06-14] MEDS: allopurinoL 100 MG TAB PO SCH (08:01)
[2021-06-14] MEDS: HEPARIN SOD 5,000 UNIT/0.5 ML VIAL SQ SCH (08:02)
[2021-06-14] MEDS: predniSONE 20 MG TAB PO SCH (08:02)
[2021-06-14] MEDS: LABETALOL HCL 200 MG TAB PO SCH (09:41)
[2021-06-14] MEDS: amLODIPine BESYLATE 5 MG TAB PO SCH (09:41)
[2021-06-14] MEDS: DOCUSATE SODIUM 100 MG CAP PO SCH (09:41)
[2021-06-14] MEDS ORDERED: bisacodyL 10 MG SUPP PR STA (09:50)
--- NOTE | 2021-06-14 15:44 | Nephrology Progress Note ---
Date of Service June 14, 2021 Assessment & Plan (1) Nephrotic syndrome: (2) Hypertensive urgency: (3) Hypertension: (4) Acute renal failure: Plan: LARISA with acute nephrotic syndrome (>10 g/24 hr) and active urine sediment. Etiology unclear. UPEP equivocal but FLC are not suggestive of gammopathy. ANCA testing negative. We cannot at this time completely exclude possible fibrillary or amyloid but appears unlikely. PLA2r pending. Serologic evaluation notable for normal C3 and C4. HD catheter placed by Dr. Dennis 06/12. First HD treatment completed 06/12. 2nd treatment completed yesterday without complications. Jaspal will start outpatient HD at [facility] on Friday under the care of Dr. Watson. Dr. Watson will be seeing the patient at the dialysis unit next week. Orders for outpatient treatment have been reviewed. IR at [facility] has been contacted and outpatient kidney biopsy is scheduled for June 25. Jaspal completed his third dose of IV methylprednisolone 06/10. Started prednisone 80 mg daily with plans for an extended taper. This dose of prednisone will be continued pending kidney biopsy and definitive diagnosis. He will be maintained on a PPI and prophylactic Bactrim (1 DS tablet 3 x weekly suggested) while on high dose steroids. BP is reasonable. Remains on labetalol 200 mg BID and amlodipine 10 mg daily. JAVIER/ARB deferred due to LARISA but reasonably could be considered if no renal recovery. Due to relative persistent oliguria, loop diuretics were held but restarting would be encouraged if urine output improves. Continue Simvastatin 40 mg daily. Allopurinol 100 mg daily. Anticoagulation not required. Dietary restrictions include low sodium diet (<2000 mg daily), low phosphorus to be reviewed at dialysis, and daily fluid restriction of 1.5 L. Continue Renagel 2 tablets QAC for hyperphosphatemia. Admission and Anticipated Discharge Date Admission Date: June 06, 2021 Subjective No acute events overnight. Jaspal was seen and evaluated in his hospital room this morning. I reviewed the plan of care with Dr. Melgar. I reviewed orders and plans for outpatient dialysis with staff at [facility]. Percutaneous kidney biopsy scheduled at [facility]. I reviewed details of care and the arrangements with Jaspal' , Angle, today. Review of Systems Review of Systems: All systems reviewed & are unremarkable except as noted in HPI & below Physical Exam Constitutional: WD/WN, vitals as above + obese and + edematous; no acute distress Eyes: + anicteric sclerae ENMT: Ears: no hearing impairment Neck: normal visual inspection Thyroid: no thyromegaly Respiratory: normal respiratory effort; no respiratory distress and no cough Auscultation: lungs clear to auscultation bilaterally Cardiovascular: Rate/Rhythm: regular rate and regular rhythm Heart Sounds: normal S1 and normal S2 Extremities: + edema Gastrointestinal (Abdomen): Inspection/Auscultation: + abdominal edema Percussion/Palpation: abdomen soft; abdomen nontender Skin: no rashes Neurologic: no focal motor deficits and not confused Motor/Sensory: no trem or and no asterixis Psychiatric: Orientation: alert and oriented x 3 Affect: euthymic affect Results & Data ([facility]) Vital Signs (Past 12 Hours) Vital Signs Temp Pulse Pulse Resp BP Pulse Ox 06/14/21 14:55 37.0 C 77 86 18 158/81 H 97 06/14/21 12:05 37.0 C 86 18 158/81 H 97 06/14/21 07:38 36.5 C 83 20 162/69 H 95 Laboratory Results Laboratory Results - last 24 hr 06/07/21 10:20 Anti-Proteinase 3 <1.0 Anti-Myeloperoxidase <1.0 ANCA Negative Double Strand DNA Ab <1 PG Care Time/CCT Total # of Minutes Spent Total Time Spent with Patient: Total time spent is greater than 50% in coordination of care (as documented) at patient's floor/unit and/or counseling patient: Coding Level of Care Code 45462 Subseq Hosp Care Lvl 3 Diagnoses Nephrotic syndrome N04.9 Hypertensive urgency I16.0 Hypertension I10 Acute renal failure N17.9
--- NOTE | 2021-06-14 16:16 | Discharge Summary ---
Date of Service June 14, 2021 Admission HPI Per Admitting Provider 75 yo M Hx HTN presented to the ER following worsening abnormal creatinine in the outpatient setting. Pertinent history as follows: Patient was seen on 05/30 by PCP office for a 2- week history of upper and lower extremity pitting edema and dyspnea on exertion after a radical change in diet at home with more salty and processed foods (per patient had partial colectomy and could only eat easily digested things and they were reaching for higher salt items). Noted to have a weight gain of 28 pounds in about a month with a decrease in urine output. BMP resulted the following day showing a creatinine of 5.32 (last known baseline 1.3 in 2018). Patient was advised to have urgent evaluation but was concerned due to the pandemic and instead urgent follow-ups were scheduled with Cardiology and Nephrology for June (no earlier appointments available). Patient was ordered Lasix 20 mg p.o. daily for suspicion of CHF/cardiorenal syndrome causing symptoms and lab abnormalities. Patient was seen on 06/05 in PCP office with significant improvement in his dyspnea and swelling following initiation of diuretics. Repeat BMP however unfortunately showed a creatinine of 8.47 and patient was urged to report to the ER for evaluation after discussion with [facility] Nephrology. On my interview patient reports no chest pain, SOB, abdominal pain, nausea, vomiting, diarrhea. He has taken Aleve 1 tablet about 5 times in the last 7 days for back aches/head pressure. In the ER patient noted to have BP 200s/100s systolic with regular sized cuff, improved to 180s/90s. Principal Diagnosis acute renal failure need to start hemodialysis tunnel catheter placement for dialysis Discharge Exam The patient appeared well still with some peripheral swelling Vital signs as documented. Lungs are clear to auscultation and appear unlabored Cardiac exam, Rhythm is regular.. No murmurs, rubs or gallops. dialysis catheter in right upper chest Abdominal exam reveals normal bowel sounds, soft non tender, no masses Extremities are still 1+ edematous and both pedal pulses are normal. Neurologic exam is alert and oriented, no focal loss of strength or sensation Skin is without bruises or rashes Psychologically is without concerns for anxiety or depression. Discharge Data Allergies Allergy/AdvReac Type Severity Reaction Status Date / Time codeine AdvReac Intermediate jittery Verified 06/06/21 18:04 morphine AdvReac Intermediate jittery Verified 06/06/21 18:04 Consultations 06/06/21 18:07 ED Decision to Admit Stat 06/06/21 19:22 Consult Nephrology Routine 06/11/21 08:54 Consult Vascular Surgery Routine Procedures Performed Operation Date: 06/12/21 13:40 Actual Procedures p Perm Catheter Placement, Right Jugular Vein, Ultrasound localization of right jugular vein, Fluoroscopy for positioning, Moderate Sedation [id number](Right) - Steven Dennis MD Ordered Studies 06/06/21 19:22 US renal/blad retro comp Urgent 06/12/21 09:35 EV cvc insrt tunnel wo prt/packer Routine US EV guide vascular access Routine Hospital Course (1) Acute renal failure: Acute renal failure nephrology consult concern for both nephrotic and nephritic picture, started on high dose sterids pending send out testing, If inconclusive, may require outpatient follow-up renal biopsy. lasix dosing 120mg bid, hold arb/hctz. -Echocardiogram performed 06/07/2021 shows preserved LV size and no regional wall abnormalities but to severe concentric LVH normal estimated right heart pressures Hypoalbuminemic to 2.6 Renvela 3 times daily 06/12/21 tunnel dialysis catheter placed started on dialysis, will continue to have dialysis T Tr Sat at [place], for outpt kidney biopsy , labs are pending and will be reviewed by Dr Koenig educated on renal diet by oil winterizer (2) Nephrotic syndrome: As above (3) Hypertension: Initially with hypertensive urgency Amlodipine 10 mg daily Labetalol 200 mg p.o. twice daily stop valsartan/HCTZ as above (4) Hypertensive urgency: As above (5) Sleep apnea: CPAP nightly as needed DVT prophylaxis: Heparin subcu Diet: Renal diet, low sodium CODE STATUS: Full code Total Time Total Time Spent Total Time Spent (In Minutes): It required greater than 30 minutes to prepare this patient for discharge Discharge Plan Discharge Items Patient Disposition: Home - Self-Care Reason For Visit: ACUTE RENAL FAILURE Discharge Diagnosis: acute renal failure placement tunneled dialysis cath Activity: Per Instructions section Non-emergency contact: Restaurant Cook Call non-emergency contact if: your symptoms worsen and your pain is concerning for you Follow-up/Referrals: Neal Smith MD [Primary Care Provider] - 06/22/21 12:50 pm Diet: Dialysis Renal Addtl Attending Provider Instructions: please follow a dialysis diet please follow up with dialysis in [place] please follow up with [facility] interventional radiology to schedule your kidney biopsy continue to take laxatives at home and have about a 2 Liter fluid restriction. you may take a shower with your dialysis cath just be sure to clean and dry site well abd redress it Pending Studies at Discharge: Yes Studies:: some of your send out tests are not returned to help diagnose your kideny issues Stand-Alone Forms: My [facility] [employer], Smoking Cessation Medications and DC Order Prescriptions: New labetalol 200 mg Tablet 200 mg PO BID Qty: 60 RF: 2 sevelamer HCl [Renagel] 800 mg Tablet 1,600 mg PO TIDM Qty: 180 RF: 2 prednisone 20 mg Tablet 80 mg PO DAILY Qty: 120 RF: 2 allopurinol 100 mg Tablet 100 mg PO DAILY Qty: 30 RF: 2 simvastatin 40 mg Tablet 40 mg PO PM Qty: 30 RF: 2 sennosides-docusate sodium [Senna with Docusate Sodium] 8.6-50 mg tablet 2 tab-cap PO BID Qty: 60 RF: 0 sulfamethoxazole-trimethoprim [Bactrim DS] 800-160 mg tablet 1 tab PO UD Qty: 30 RF: 2 amlodipine 10 mg tablet 10 mg PO DAILY Qty: 30 RF: 2 Continued Restasis 0.05 % dropperette 1 drops OP Q12H RF: 0 Discontinued valsartan-hydrochlorothiazide 320-25 mg tablet 1 tab PO QAM RF: 0 furosemide [Lasix] 20 mg tablet 20 mg PO DAILY RF: 0 multivitamin Tablet 1 tab PO DAILY RF: 0 ascorbic acid (vitamin C) [Vitamin C] 500 mg Tablet,Chewable 500 mg PO QAM RF: 0 vitamin B complex Tablet 1 tab PO DAILY RF: 0 zinc 50 mg Tablet 50 mg PO DAILY RF: 0 Discharge Orders: Discharge Order (Routine); Ordered 06/14/21 Ordered By: Vignesh Romero/Other Patient Handouts: ED Hemodialysis Admission Data Admit Date/Time: 06/06/21 19:22 Attending Provider: Vignesh Melgar Admit Provider: Jessica Trammell Primary Care Provider: Neal Smith Other Providers: Leo Reyes ; Yen Koenig Eugene J Other Interventions: Discharge Summary Assessment (RN) Last Done: 06/14/21 14:55 Coding Level of Care Code D/C DAY MANAGEMENT >30 MINS Diagnoses Acute renal failure N17.9 Nephrotic syndrome N04.9 Hypertension I10 Hypertensive urgency I16.0 Sleep apnea G47.30
[2021-06-14 20:11] LABS: Uric Acid, Random Urine 50 mg/dL
[2021-06-16 01:32] LABS: Anti Nuclear Antibody Screen POSITIVE (NEGATIVE); Anti-Glom Basement Antibody <1.0 AI (<1.0); Hepatitis B Core Antibody IgM NON-REACTIVE (NON-REACTIVE)
[2021-06-18 12:47] LABS: ANA Pattern Cytoplasmic
== END 2021-06-14 15:15 | disposition home or self-care (01) | DRG 674 ==
LOC: ED 16:55 → EDINP 19:22 → SUATTDRO 19:22 → EDINP 21:17 → 2S 06-08 21:19